=== PATIENT | female | born 1945 | race African-American/Black ===

== ENCOUNTER 2017-10-12 23:45 | Emergency (ER) | payer MEDICARE, MEDICAID ==
[~2017-10-12] VITALS: Ht 167.6 cm; Wt 81.6 kg
[~2017-10-12 23:45] MED LIST: AMLODIPINE BESYL5 MG ORAL; CATAPRES0.1 MG ORAL; CIPROFLOXACIN750 MG ORAL; ELIQUIS5 MG PO; LOVENOX10 MG SUBQ; NEURONTIN300 MG ORAL; NORCO 5-325 TA1 EACH ORAL; NORVASC2.5 MG ORAL; ONDANSETRON ODT4 MG ORAL; TRAMADOL HCL50 MG ORAL; WARFARIN SODIU2.5 MG ORAL; XARELTO10 MG ORAL
[2017-10-13 00:01] VITALS: BP 178/90
--- NOTE | 2017-10-13 00:24 | Emergency Room Report ---
History of Present Illness General Chief Complaint: Pain Source: Patient, Medical Record, EMS Present Illness HPI This is a 71-year-old female with numerous allergies to medication. She has a history of DVT. She says she's mostly on Elida Tonya. She presents with chief complaint of generalized body pain. She was just discharged from [facility] today and sent to a half-way/rehabilitation area. She didn't like it there so she called 911. She complaining of generalized body pain mostly her legs. She said they're swollen. No fever chills but no nausea or vomiting. Pain is 9 out of 10. No trauma. No fever or chills. No shortness of breath. She says she was to take the train back to [place]. Allergies: Coded Allergies: HYDROMORPHONE (Unverified Allergy, Severe, 11/03/13) ACETAMINOPHEN (Unverified Allergy, Mild, 11/03/13) AMOXICILLIN (Unverified Allergy, Mild, 11/03/13) HYDROCODONE (Unverified Allergy, Mild, 11/03/13) PENICILLINS (Unverified Allergy, Mild, 11/03/13) TETRACYCLINES (Unverified Allergy, Mild, 11/03/13) ASPIRIN (Verified Allergy, Unknown, 01/31/15) MORPHINE (Verified Allergy, Unknown, 01/31/15) SULFA (SULFONAMIDE ANTIBIOTICS) (Verified Allergy, Unknown, 01/31/15) Uncoded Allergies: Cipro,Dilaudid, Morphine sulfate (Allergy, Mild, 01/30/15) codein (Allergy, Mild, 11/03/13) gatricin (Allergy, Mild, 11/03/13) gatrinol (Allergy, Mild, 11/03/13) msg (Allergy, Mild, 11/03/13) Patient History Past Medical History: see triage record, old chart reviewed Past Surgical History: other Pertinent Family History: none Social History: Denies: smoking Now: No Immunizations: other Reviewed Nursing Documentation: PMH: Agreed; PSxH: Agreed Nursing Documentation-PMH Hx Hypertension: Yes Hx Cerebrovascular Accident: Yes - TIA Review of Systems Eye: Denies: eye pain, blurred vision ENT: Denies: ear pain, nose congestion, throat swelling Respiratory: Denies: cough, shortness of breath Cardiovascular: Denies: chest pain, palpitations Gastrointestinal: Denies: abdominal pain, diarrhea, nausea, vomiting Musculoskeletal: Denies: back pain, joint pain Skin: Denies: rash Neurological: Denies: headache, numbness Endocrine: Denies: increased thirst, increased urine Hematologic/Lymphatic: Denies: easy bruising All Other Systems: negative except mentioned in HPI Physical Exam Vital Signs Date Time Temp Pulse Resp B/P (MAP) Pulse Ox O2 Delivery O2 Flow Rate FiO2 10/12/17 23:56 98.7 94 16 178/90 99 Room Air 98.8 vitals with high blood pressure Sp02 EP Interpretation: reviewed, normal General Appearance: well appearing, no apparent distress, alert Head: normocephalic, atraumatic Eyes: bilateral eye PERRL, bilateral eye EOMI ENT: hearing grossly normal, normal pharynx Neck: full range of motion, supple, no meningismus Respiratory: chest non-tender, lungs clear, normal breath sounds Cardiovascular #1: regular rate, rhythm, no murmur Gastrointestinal: normal bowel sounds, non tender, no mass, no organomegaly, no bruit, non-distended Musculoskeletal: back normal, normal range of motion, tender - There was no edema to to lower extremities. Diffuse tenderness with palpation. no redness. no d/c. Neurologic: alert, oriented x3 Psychiatric: mood/affect normal Skin: warm/dry Medical Decision Making Diagnostic Impression: Primary Impression: Pain ER Course Patient with chronic pain. She has a packet of discharge paperwork from different hospitals. She refused to let me look at them. I see no need for further workup since she was just at another ER for the same thing. She is currently taking anticoagulation already. We'll discharge home. She said that she can take [facility] also give her a dose here. Last Vital Signs Date Time Temp Pulse Resp B/P (MAP) Pulse Ox O2 Delivery O2 Flow Rate FiO2 10/12/17 23:56 98.7 94 16 178/90 99 Room Air 98.8 Status: improved Disposition: HOME, SELF-CARE Condition: Stable Referrals: NOT CHOSEN IPA/,REFERRING (PCP) Additional Instructions: Follow-up with your doctor in 7 days. Return if symptom worsen. HUMA POWELL M.D. Oct 13, 2017 00:24
[2017-10-13] MEDS ORDERED: Norco 5mg/325mg tab ORAL ONE (00:30)
[2017-10-13 00:45] VITALS: BP 0/0
== END 2017-10-13 00:45 | disposition home or self-care (01) ==
LOC: EDBD 23:45 → EMR 23:59
DX: R52 Pain, unspecified (principal); G89.29 Other chronic pain; I10 Essential (primary) hypertension; Z86.73 Personal history of transient ischemic attack (TIA), and cerebral infarction without residual deficits; Z88.6 Allergy status to analgesic agent; Z88.0 Allergy status to penicillin; Z88.2 Allergy status to sulfonamides; Z88.5 Allergy status to narcotic agent
CPT/HCPCS: 99283

== ENCOUNTER 2017-11-21 21:06 | Inpatient (IN) | payer MEDICARE, MEDICAID ==
[~2017-11-21] VITALS: Ht 167.6 cm; Wt 88.9 kg
[2017-11-21] MEDS ORDERED: ELIQUIS5 MG PO (21:13)
[2017-11-21] MEDS ORDERED: Isovue-370 150ml vial INJ PRN (21:30)
[2017-11-21] MEDS ORDERED: Norco 5mg/325mg tab ORAL ONE (21:30)
[2017-11-21 22:00] VITALS: BP 148/83
--- NOTE | 2017-11-21 22:01 | Emergency Room Report ---
History of Present Illness General Chief Complaint: Chest Pain Source: EMS Present Illness HPI 72-year-old female presents ED complaining of chest pain and leg pain. Brought in by EMS. States that she was diagnosed a few days ago with a DVT in her right leg. She was started on Eliquis. States that she developed chest pain starting today. Midsternal, pressure, 7 out of 10, nonradiating. Notes pain with deep breaths. Denies any history of hypertension or diabetes. Denies smoking or drug use. No other aggravating relieving factors. Denies any other associated symptoms Allergies: Coded Allergies: CODEINE (Verified Allergy, Mild, 11/21/17) HYDROMORPHONE (Verified Allergy, Mild, 11/21/17) MORPHINE (Verified Allergy, Mild, 11/21/17) PENICILLINS (Verified Allergy, Mild, 11/21/17) Patient History Past Medical History: HTN, other - DVT Past Surgical History: none Pertinent Family History: none Social History: Denies: smoking, alcohol use, drug use Now: No Immunizations: UTD Reviewed Nursing Documentation: PMH: Agreed; PSxH: Agreed Nursing Documentation-PMH Past Medical History: No History, Except For Hx Cardiac Problems: Yes Hx Hypertension: Yes Review of Systems All Other Systems: negative except mentioned in HPI Physical Exam Vital Signs Date Time Temp Pulse Resp B/P (MAP) Pulse Ox O2 Delivery O2 Flow Rate FiO2 11/21/17 21:08 98.1 86 16 154/88 100 Room Air 98.1 Sp02 EP Interpretation: reviewed, normal General Appearance: no apparent distress, alert, GCS 15, non-toxic Head: normocephalic, atraumatic Eyes: bilateral eye normal inspection, bilateral eye PERRL ENT: hearing grossly normal, normal pharynx, no angioedema, normal voice Neck: full range of motion, supple/symm/no masses Respiratory: chest non-tender, lungs clear, normal breath sounds, speaking full sentences Cardiovascular #1: regular rate, rhythm, no edema Cardiovascular #2: 2+ carotid (R), 2+ carotid (L), 2+ radial (R), 2+ radial (L) , 2+ dorsalis pedis (R), 2+ dorsalis pedis (L) Gastrointestinal: normal bowel sounds, non tender, soft, non-distended, no guarding, no rebound Rectal: deferred Genitourinary: normal inspection, no CVA tenderness Musculoskeletal: back normal, gait/station normal, normal range of motion, calf tenderness - RLE Neurologic: alert, oriented x3, responsive, motor strength/tone normal, sensory intact, speech normal Psychiatric: judgement/insight normal, memory normal, mood/affect normal, no suicidal/homicidal ideation Reflexes: 3+ bicep (R), 3+ bicep (L), 3+ tricep (R), 3+ tricep (L), 3+ knee (R) , 3+ knee (L) Skin: normal color, no rash, warm/dry, well hydrated Lymphatic: no adenopathy Medical Decision Making Diagnostic Impression: Primary Impression: Chest pain Qualified Codes: R07.9 - Chest pain, unspecified Additional Impression: DVT (deep venous thrombosis) Qualified Codes: I82.90 - Acute embolism and thrombosis of unspecified vein ER Course Hospital Course 72 yo F presents with chest pain. recently diagnosed with DVT Differential diagnoses include: IL/unstable angina, PE, bronchitis, asthma Clinical course Patient placed on stretcher. on classroom monitor. After initial history and physical I ordered labs, EKG, CTA chest labs reviewed- no leukocytosis, hemoglobin/hematocrit stable, electrolytes ok, troponins negative, d-dimer elevated EKG - NSR, no acute ischemic changes interpreted by me. no signs of RV strain Unable to do CTA at this time as patient now documents a contrast allergy. Clinically concerning for PE given recent diagnosis of DVT. We will treat empirically with Lovenox. Patient will require a VQ scan tomorrow Lovenox given. Case discussed with Dr. Bonilla and he agreed to accept the patient to his service for further care and support I. I feel this is a highly complex case requiring extensive working including EKG/Rhythm strip, Xray/CT/US, Blood/urine lab work, repeat exams while in ED, and administration of strong opiates/narcotics for pain control, admission to hospital or close patient follow up. Diagnosis - chest pain, DVT admitted to telemetry in serious condition Labs Test 11/21/17 23:10 White Blood Count 5.7 K/UL (4.8-10.8) Red Blood Count 3.93 M/UL (4.20-5.40) Hemoglobin 10.8 G/DL (12.0-16.0) Hematocrit 33.2 % (37.0-47.0) Mean Corpuscular Volume 84 FL (80-99) Mean Corpuscular Hemoglobin 27.4 PG (27.0-31.0) Mean Corpuscular Hemoglobin Concent 32.5 G/DL (32.0-36.0) Red Cell Distribution Width 14.7 % (11.6-14.8) Platelet Count 205 K/UL (150-450) Mean Platelet Volume 5.2 FL (6.5-10.1) Neutrophils (%) (Auto) 55.5 % (45.0-75.0) Lymphocytes (%) (Auto) 32.9 % (20.0-45.0) Monocytes (%) (Auto) 8.1 % (1.0-10.0) Eosinophils (%) (Auto) 2.0 % (0.0-3.0) Basophils (%) (Auto) 1.5 % (0.0-2.0) Prothrombin Time 11.1 SEC (9.30-11.50) Prothromb Time International Ratio 1.1 (0.9-1.1) Activated Partial Thromboplast Time 21 SEC (23-33) D-Dimer 2.03 mg/L FEU (0.00-0.49) Sodium Level 138 MMOL/L (136-145) Potassium Level 3.4 MMOL/L (3.5-5.1) Chloride Level 106 MMOL/L (98-107) Carbon Dioxide Level 25 MMOL/L (21-32) Anion Gap 7 mmol/L (5-15) Blood Urea Nitrogen 23 mg/dL (7-18) Creatinine 0.8 MG/DL (0.55-1.30) Estimat Glomerular Filtration Rate mL/min (>60) Glucose Level 93 MG/DL (74-106) Calcium Level 9.2 MG/DL (8.5-10.1) Total Bilirubin 0.3 MG/DL (0.2-1.0) Aspartate Amino Transf (AST/SGOT) 12 U/L (15-37) Alanine Aminotransferase (ALT/SGPT) 15 U/L (12-78) Alkaline Phosphatase 99 U/L (46-116) Total Creatine Kinase 72 U/L (26-308) Creatine Kinase MB 0.6 NG/ML (0.0-3.6) Creatine Kinase MB Relative Index 0.8 Troponin I 0.002 ng/mL (0.000-0.056) Pro-B-Type Natriuretic Peptide 230 pg/mL (0-125) Total Protein 7.1 G/DL (6.4-8.2) Albumin 3.0 G/DL (3.4-5.0) Globulin 4.1 g/dL Albumin/Globulin Ratio 0.7 (1.0-2.7) EKG Diagnostic Results Rate: normal Rhythm: NSR ST Segments: no acute changes Rhythm Strip Diag. Results EP Interpretation: yes Rhythm: NSR, no PVC's, no ectopy Last Vital Signs Date Time Temp Pulse Resp B/P (MAP) Pulse Ox O2 Delivery O2 Flow Rate FiO2 11/21/17 21:08 98.1 86 16 154/88 100 Room Air 98.1 Status: improved Disposition: ADMITTED INPATIENT Condition: Serious Rafal Phan MD Nov 21, 2017 22:01
[2017-11-21 23:00] VITALS: BP 140/88
[2017-11-21 23:30] LABS: BASOPHILS % (AUTO) 1.5 % (0.0-2.0); HEMATOCRIT 33.2 % (37.0-47.0); HEMOGLOBIN 10.8 G/DL (12.0-16.0); LYMPHOCYTES % (AUTO) 32.9 % (20.0-45.0); MEAN CORPUSCULAR VOLUME 84 FL (80-99); MONOCYTES % (AUTO) 8.1 % (1.0-10.0); NEUTROPHILS % (AUTO) 55.5 % (45.0-75.0); PLATELET COUNT 205 K/UL (150-450); RED BLOOD COUNT 3.93 M/UL (4.20-5.40); RED CELL DISTRIBUTION WIDTH 14.7 % (11.6-14.8); WHITE BLOOD COUNT 5.7 K/UL (4.8-10.8)
[2017-11-21 23:42] LABS: ANION GAP 7 mmol/L (5-15); BLOOD UREA NITROGEN 23 mg/dL (7-18); CALCIUM 9.2 MG/DL (8.5-10.1); CARBON DIOXIDE 25 MMOL/L (21-32); CHLORIDE 106 MMOL/L (98-107); CREATININE 0.8 MG/DL (0.55-1.30); POTASSIUM 3.4 MMOL/L (3.5-5.1); SODIUM 138 MMOL/L (136-145)
[2017-11-21 23:49] LABS: INR 1.1 (0.9-1.1)
[2017-11-21 23:57] LABS: ALANINE AMINOTRANSFERASE 15 U/L (12-78); ALBUMIN/GLOBULIN RATIO 0.7 (1.0-2.7); ALKALINE PHOSPHATASE 99 U/L (46-116); ASPARTATE AMINO TRANSFERASE 12 U/L (15-37); BILIRUBIN,TOTAL 0.3 MG/DL (0.2-1.0); CKMB 0.6 NG/ML (0.0-3.6); CREATINE KINASE 72 U/L (26-308)
[2017-11-22] VITALS (7 sets, daily range): BP systolic 112–149; BP diastolic 58–100
[2017-11-22] MEDS ORDERED: Enoxaparin 100mg Inj SUBQ ONE (00:45)
[2017-11-22] MEDS ORDERED: HYDROCHLOROTHIA25 MG ORAL (03:01)
[2017-11-22] MEDS ORDERED: NORCO 5-325 TA1 EACH ORAL (03:01)
[2017-11-22] MEDS: Docusate 100mg cap ORAL SCH ×2 (08:55→21:30)
--- NOTE | 2017-11-22 09:18 | Diagnostic Imaging Report ---
Indication: Chest pain Technique: One view of the chest Comparison: none Findings: Lungs and pleural spaces are clear. Heart size is normal Impression: No acute process
[2017-11-22] MEDS: Eliquis 2.5mg tablet ORAL SCH ×2 (10:21→21:29)
--- NOTE | 2017-11-22 13:05 | Cardiac Electrophysiology PN ---
Subjective Subjective [id number] Objective Last 24 Hour Vital Signs Date Time Temp Pulse Resp B/P (MAP) Pulse Ox O2 Delivery O2 Flow Rate FiO2 11/22/17 09:00 Room Air 11/22/17 08:00 97.7 78 20 130/63 (85) 99 97.7 11/22/17 08:00 77 11/22/17 04:00 79 11/22/17 03:34 Room Air 11/22/17 03:00 97.0 84 20 112/58 (76) 94 97.0 11/22/17 02:30 91 11/22/17 02:10 97.9 78 16 118/65 100 Room Air 97.9 11/22/17 01:00 97.9 78 16 118/65 100 Room Air 97.9 11/22/17 00:22 97.9 11/22/17 00:00 97.9 71 16 147/85 100 Room Air 97.9 11/21/17 23:23 98.1 11/21/17 23:00 97.9 74 15 140/88 99 Room Air 97.9 11/21/17 22:00 98.1 78 16 148/83 100 Room Air 98.1 11/21/17 21:45 80 16 Room Air 11/21/17 21:08 98.1 86 16 154/88 100 Room Air 98.1 Intake and Output 11/21/17 11/22/17 19:00 07:00 Intake Total 390 ml Output Total 300 ml Balance 90 ml Intake Oral 240 ml IV Total 150 ml Output Urine Total 300 ml # Voids 1 Laboratory Tests Test 11/21/17 23:10 11/22/17 08:05 White Blood Count 5.7 K/UL (4.8-10.8) Red Blood Count 3.93 M/UL (4.20-5.40) L Hemoglobin 10.8 G/DL (12.0-16.0) L Hematocrit 33.2 % (37.0-47.0) L Mean Corpuscular Volume 84 FL (80-99) Mean Corpuscular Hemoglobin 27.4 PG (27.0-31.0) Mean Corpuscular Hemoglobin Concent 32.5 G/DL (32.0-36.0) Red Cell Distribution Width 14.7 % (11.6-14.8) Platelet Count 205 K/UL (150-450) Mean Platelet Volume 5.2 FL (6.5-10.1) L Neutrophils (%) (Auto) 55.5 % (45.0-75.0) Lymphocytes (%) (Auto) 32.9 % (20.0-45.0) Monocytes (%) (Auto) 8.1 % (1.0-10.0) Eosinophils (%) (Auto) 2.0 % (0.0-3.0) Basophils (%) (Auto) 1.5 % (0.0-2.0) Prothrombin Time 11.1 SEC (9.30-11.50) Prothromb Time International Ratio 1.1 (0.9-1.1) Activated Partial Thromboplast Time 21 SEC (23-33) L D-Dimer 2.03 mg/L FEU (0.00-0.49) H Sodium Level 138 MMOL/L (136-145) Potassium Level 3.4 MMOL/L (3.5-5.1) L Chloride Level 106 MMOL/L (98-107) Carbon Dioxide Level 25 MMOL/L (21-32) Anion Gap 7 mmol/L (5-15) Blood Urea Nitrogen 23 mg/dL (7-18) H Creatinine 0.8 MG/DL (0.55-1.30) Estimat Glomerular Filtration Rate mL/min (>60) Glucose Level 93 MG/DL (74-106) Calcium Level 9.2 MG/DL (8.5-10.1) Total Bilirubin 0.3 MG/DL (0.2-1.0) Aspartate Amino Transf (AST/SGOT) 12 U/L (15-37) L Alanine Aminotransferase (ALT/SGPT) 15 U/L (12-78) Alkaline Phosphatase 99 U/L (46-116) Total Creatine Kinase 72 U/L (26-308) Creatine Kinase MB 0.6 NG/ML (0.0-3.6) Creatine Kinase MB Relative Index 0.8 Troponin I 0.002 ng/mL (0.000-0.056) 0.000 ng/mL (0.000-0.056) Pro-B-Type Natriuretic Peptide 230 pg/mL (0-125) H Total Protein 7.1 G/DL (6.4-8.2) Albumin 3.0 G/DL (3.4-5.0) L Globulin 4.1 g/dL Albumin/Globulin Ratio 0.7 (1.0-2.7) L Noe Crook MD Nov 22, 2017 13:05
[2017-11-22 14:39] LABS: FERRITIN 18 NG/ML (8-388)
[2017-11-22 14:42] LABS: % IRON SATURATION 10 % (15-50); IRON 29 ug/dL (50-175); TOTAL IRON BINDING CAPACITY 285 ug/dL (250-450)
--- NOTE | 2017-11-22 15:14 | Diagnostic Imaging Report ---
Indications: Chest pain, shortness of breath, history of deep venous thrombosis Technique: IV administration 5.5 mCi 99m technetium macroaggregated albumin. Images obtained over the lungs in multiple projections. Previously, patient inhaled 40 mCi aerosolized 99M technetium DTPA. Images obtained over the lungs in multiple projections Comparison: Reference made to chest radiograph dated 11/21/2017 Findings: There is slight heterogeneity to the pulmonary perfusion, but no definite fixed or reversible perfusion defects or evidence of perfusion/aerosol mismatch. Impression: Findings are low probability for pulmonary embolus
--- NOTE | 2017-11-22 17:00 | Consultation ---
DATE OF CONSULTATION: 11/22/2017 CARDIAC ELECTROPHYSIOLOGY CONSULTATION CONSULTING PHYSICIAN: Noe Crook M.D. REFERRING PHYSICIAN: Kvng Dwyer M.D. REASON FOR CONSULTATION: Chest pain and leg pain. HISTORY OF PRESENT ILLNESS: The patient is a very pleasant 72-year-old lady with history of hypertension and history of deep vein thrombosis, brought to the emergency room for right leg pain. The patient was started on Eliquis as an outpatient for DVT, chest pain that was midsternal, but pain was without any radiation. The patient was admitted and a Cardiology consultation was obtained for further evaluation and management. PAST MEDICAL HISTORY: Includes hypertension and DVT. FAMILY HISTORY: Noncontributory. SOCIAL HISTORY: She denies smoking or drinking alcohol. REVIEW OF SYSTEMS: Performed and was negative other than what was mentioned in the history of present illness. PHYSICAL EXAMINATION: VITAL SIGNS: Blood pressure is 130/63, pulse 78, respirations 18, and she is afebrile. HEAD AND NECK: Shows no JVD or carotid bruit. LUNGS: Clear. CARDIOVASCULAR: Shows regular S1 and S2 with no gallop or murmur. ABDOMEN: Soft. EXTREMITIES: Show 1+ pitting edema. LABORATORY AND DIAGNOSTIC DATA: Labs show white count of 5.7, hematocrit 10.8, hematocrit 33.5, and platelet count of 205,000. Sodium 138, potassium 3.4, BUN of 22, creatinine 0.8, and glucose of 93. Troponin negative x2. INR is 1. D-dimer is 2.0. ASSESSMENT AND PLAN: 1. Deep venous thrombosis. The patient is on Eliquis 5 mg b.i.d. Ventilation/perfusion scan is pending for further evaluation to rule out pulmonary embolism. 2. Chest pain, atypical. The patient was ruled out for myocardial infarction. EKG was read as acute ischemic changes. We will get an echocardiogram to rule out for ejection fraction and wall motion abnormality. 3. Hypertension, on hydrochlorothiazide. I will add p.r.n. clonidine to her medical regimen. Thank you very much for allowing me to participate in the care of this patient. Please do not hesitate to contact me for any questions regarding my evaluation. Noe Crook M.D. DR: LÁZARO JOB#: [id number] CC:
--- NOTE | 2017-11-22 23:15 | Consultation ---
DATE OF CONSULTATION: 11/22/2017 PULMONARY CONSULTATION CONSULTING PHYSICIAN: Edi Veras M.D. REFERRING PHYSICIAN: Allen Bonilla M.D. REASON FOR ADMISSION: Pulmonary embolism. HISTORY OF PRESENT ILLNESS: This is a 72-year-old female presents with chest pain, likely the patient has been diagnosed a few days ago with DVT, started on Eliquis. The patient noticed worsening pain, apparently with some pain in the chest and shortness of breath. No history of hypertension or diabetes. The patient also complains of some nausea. At this time, the patient was admitted. Medications resumed and was called to assist and evaluate further. The patient has a known history of pulmonary embolism as described. She has multiple allergies currently, she is otherwise comfortable. No hemoptysis and no radiation of pain. PAST MEDICAL HISTORY: DVT, hypertension, and PE. MEDICATIONS: Reviewed. PAST SURGICAL HISTORY: Essentially negative. FAMILY HISTORY: Essentially negative and noncontributory to the above. REVIEW OF SYSTEMS: All 10 points reviewed and otherwise negative with the exception of the above. PHYSICAL EXAMINATION: GENERAL: A well-developed female, comfortable at present. VITAL SIGNS: Blood pressure 128/63, pulse 78, respiratory rate 20, and temperature 97.7. HEENT: Negative. Extraocular movements are grossly intact. NECK: Supple. LUNGS: Fairly clear and symmetric. CARDIAC: Normal S1, S2. Regular rate and rhythm without murmurs, rubs, or gallops. ABDOMEN: Soft, nontender, and nondistended. EXTREMITIES: No cyanosis or clubbing. There is trace edema. NEUROLOGIC: Diffusely nonfocal overall. LABORATORY DATA: Otherwise reviewed. X-ray essentially negative of the chest. IMPRESSION: 1. DVT. 2. Possible history of pulmonary embolism. 3. Chest pain. 4. Possible pleurisy. 5. Evidence of nausea. RECOMMENDATION: Resume home medications. The patient is currently on Lovenox one dose given. We will resume Xarelto and/or Eliquis. VQ scan has been ordered and maintain anticoagulation and to assess for further changes and intervention and re-evaluate pending further imaging results. Eid Veras M.D. DR: KAYLEE JOB#: [id number] CC:
[2017-11-23 04:00] VITALS: BP 132/71
[2017-11-23 07:20] LABS: BASOPHILS % (AUTO) 0.9 % (0.0-2.0); EOSINOPHILS % (AUTO) 2.6 % (0.0-3.0); HEMATOCRIT 33.2 % (37.0-47.0); HEMOGLOBIN 10.5 G/DL (12.0-16.0); LYMPHOCYTES % (AUTO) 34.5 % (20.0-45.0); MEAN CORPUSCULAR VOLUME 85 FL (80-99); PLATELET COUNT 248 K/UL (150-450); RED BLOOD COUNT 3.91 M/UL (4.20-5.40); RED CELL DISTRIBUTION WIDTH 14.7 % (11.6-14.8); WHITE BLOOD COUNT 5.2 K/UL (4.8-10.8)
[2017-11-23 07:37] LABS: ANION GAP 9 mmol/L (5-15); BLOOD UREA NITROGEN 19 mg/dL (7-18); CALCIUM 9.3 MG/DL (8.5-10.1); CARBON DIOXIDE 26 MMOL/L (21-32); CHLORIDE 109 MMOL/L (98-107); CREATININE 0.8 MG/DL (0.55-1.30); POTASSIUM 3.8 MMOL/L (3.5-5.1); SODIUM 144 MMOL/L (136-145)
[2017-11-23 08:00] VITALS: BP 146/86
--- NOTE | 2017-11-23 08:01 | Pulmonology Progress Note ---
Assessment/Plan Assessment/Plan IMPRESSION: 1. DVT. 2. History of pulmonary embolism. 3. Chest pain. 4. Possible pleurisy. 5. Evidence of nausea. PLAN eliquis monitor as is VQ low prob cards noted care reviewed monitor for bleeding unclear as to whether PE was provoked or unprovoked impression, plan, and exam edited and reviewed in detail care discussed with RN Subjective Allergies: Coded Allergies: HYDROMORPHONE (Unverified Allergy, Severe, 11/03/13) DIPHENHYDRAMINE (Verified Allergy, Intermediate, Itching, 11/22/17) ACETAMINOPHEN (Unverified Allergy, Mild, 11/03/13) AMOXICILLIN (Unverified Allergy, Mild, 11/03/13) CODEINE (Verified Allergy, Mild, 11/22/17) HYDROCODONE (Unverified Allergy, Mild, 11/03/13) PENICILLINS (Unverified Allergy, Mild, 11/03/13) TETRACYCLINES (Unverified Allergy, Mild, 11/03/13) ASPIRIN (Verified Allergy, Unknown, 01/31/15) MORPHINE (Verified Allergy, Unknown, 01/31/15) SULFA (SULFONAMIDE ANTIBIOTICS) (Verified Allergy, Unknown, 01/31/15) Uncoded Allergies: IV CONTRAST (Allergy, Intermediate, Itching, 11/22/17) MSG (Allergy, Intermediate, Itching, 11/22/17) Cipro,Dilaudid, Morphine sulfate (Allergy, Mild, 01/30/15) codein (Allergy, Mild, 11/03/13) gatricin (Allergy, Mild, 11/03/13) gatrinol (Allergy, Mild, 11/03/13) msg (Allergy, Mild, 11/03/13) Subjective no cp or sob vq reviewed Objective Last 24 Hour Vital Signs Date Time Temp Pulse Resp B/P (MAP) Pulse Ox O2 Delivery O2 Flow Rate FiO2 11/23/17 04:00 98.0 64 20 132/71 (91) 99 98.0 11/23/17 03:38 74 11/22/17 23:57 79 11/22/17 21:00 Room Air 11/22/17 20:00 98.2 93 19 141/73 (95) 97 98.2 11/22/17 19:23 93 11/22/17 16:00 80 11/22/17 16:00 98.4 96 16 149/100 (116) 96 98.4 11/22/17 12:00 97.3 72 22 134/74 (94) 98 97.3 11/22/17 12:00 76 11/22/17 09:00 Room Air Intake and Output 11/22/17 11/23/17 19:00 07:00 Intake Total 650 ml 240 ml Output Total 600 ml Balance 650 ml -360 ml Intake Oral 650 ml 240 ml Output Urine Total 600 ml # Voids 4 3 Objective GENERAL: A well-developed female, comfortable at present. NAD HEENT: Negative. clear oropharynx NECK: Supple. LUNGS: Fairly clear and symmetric. without rhonchi or wheeze CARDIAC: Normal S1, S2. Regular rate and rhythm without murmurs, rubs, or gallops. ABDOMEN: Soft, nontender, and nondistended. no HSM EXTREMITIES: No cyanosis or clubbing. There is trace edema. NEUROLOGIC: Diffusely nonfocal overall. Laboratory Tests 11/22/17 08:05: Troponin I 0.000 11/22/17 13:50: Fibrinogen 359, D-Dimer 1.35H, Iron Level 29L, Total Iron Binding Capacity 285, Percent Iron Saturation 10L, Unsaturated Iron Binding 256, Ferritin 18, Carcinoembryonic Antigen [Pending], Methylmalonic Acid [Pending], Folate 10.1, Homocystine [Pending], Thyroid Stimulating Hormone (TSH) 0.211L 11/23/17 06:30: Troponin I [Pending], White Blood Count 5.2, Red Blood Count 3.91L, Hemoglobin 10.5L, Hematocrit 33.2L, Mean Corpuscular Volume 85, Mean Corpuscular Hemoglobin 26.9L, Mean Corpuscular Hemoglobin Concent 31.6L, Red Cell Distribution Width 14.7, Platelet Count 248, Mean Platelet Volume 5.4L, Neutrophils (%) (Auto) 52.0, Lymphocytes (%) (Auto) 34.5, Monocytes (%) (Auto) 10.0, Eosinophils (%) (Auto) 2.6, Basophils (%) (Auto) 0.9, Sodium Level 144, Potassium Level 3.8, Chloride Level 109H, Carbon Dioxide Level 26, Anion Gap 9, Blood Urea Nitrogen 19H, Creatinine 0.8, Estimat Glomerular Filtration Rate , Glucose Level 90, Calcium Level 9.3, Pro-B-Type Natriuretic Peptide [Pending] Current Medications Medications (Trade) Dose Ordered Sig/Antonio Route PRN Reason Start Time Stop Time Status Last Admin Dose Admin Acetaminophen (Tylenol) 650 mg Q4H PRN ORAL Mild Pain (Pain Scale 1-3) 11/22/17 00:45 12/22/17 00:44 11/22/17 21:36 Apixaban (Eliquis) 5 mg Q12H ORAL 11/22/17 10:00 12/22/17 09:59 11/22/17 21:29 Dextrose (Dextrose 50%) 25 ml STAT PRN IV Hypoglycemia 11/22/17 00:45 12/22/17 00:44 Dextrose (Dextrose 50%) 50 ml STAT PRN IV Hypoglycemia 11/22/17 00:45 12/22/17 00:44 Diphenhydramine HCl (Benadryl) 25 mg Q6H PRN ORAL Itching/Pruritis 11/22/17 00:45 12/22/17 00:44 Docusate Sodium (Colace) 100 mg EVERY 12 HOURS ORAL 11/22/17 09:00 12/22/17 08:59 11/22/17 21:30 Famotidine (Pepcid) 40 mg DAILY ORAL 11/22/17 09:00 12/22/17 08:59 11/22/17 08:54 Hydrochlorothiazide (Hydrodiuril) 25 mg DAILY ORAL 11/22/17 09:00 12/22/17 08:59 11/22/17 08:54 Iopamidol (Isovue-370 150ml) 150 ml NOW PRN INJ Radiology Procedure 11/21/17 21:30 11/23/17 21:24 Ondansetron HCl (Zofran) 4 mg Q6H PRN IVP Nausea & Vomiting 11/22/17 08:31 12/22/17 08:30 11/22/17 08:55 Sodium Chloride 1,000 ml @ 50 mls/hr Q20H IVLG 11/22/17 01:39 12/22/17 01:38 11/22/17 21:29 Edi Veras MD Nov 23, 2017 08:01
--- NOTE | 2017-11-23 08:08 | Nephrology Progress Note ---
Assessment/Plan Assessment/Plan 1. DVT- Back on Eliquis after stopping it prior to return of DVT 2. Chest Pain- per cardiology VQ scan low probability Await DC clearance from cardiology 3. Disposition- plan on DC aminata to SNF 4. HTN- stable on HCT Subjective Date patient seen: Nov 23, 2017 Time patient seen: 08:03 ROS Limited/Unobtainable: No Allergies: Coded Allergies: HYDROMORPHONE (Unverified Allergy, Severe, 11/03/13) DIPHENHYDRAMINE (Verified Allergy, Intermediate, Itching, 11/22/17) ACETAMINOPHEN (Unverified Allergy, Mild, 11/03/13) AMOXICILLIN (Unverified Allergy, Mild, 11/03/13) CODEINE (Verified Allergy, Mild, 11/22/17) HYDROCODONE (Unverified Allergy, Mild, 11/03/13) PENICILLINS (Unverified Allergy, Mild, 11/03/13) TETRACYCLINES (Unverified Allergy, Mild, 11/03/13) ASPIRIN (Verified Allergy, Unknown, 01/31/15) MORPHINE (Verified Allergy, Unknown, 01/31/15) SULFA (SULFONAMIDE ANTIBIOTICS) (Verified Allergy, Unknown, 01/31/15) Uncoded Allergies: IV CONTRAST (Allergy, Intermediate, Itching, 11/22/17) MSG (Allergy, Intermediate, Itching, 11/22/17) Cipro,Dilaudid, Morphine sulfate (Allergy, Mild, 01/30/15) codein (Allergy, Mild, 11/03/13) gatricin (Allergy, Mild, 11/03/13) gatrinol (Allergy, Mild, 11/03/13) msg (Allergy, Mild, 11/03/13) All Systems: reviewed and negative except above Subjective Patient feeling better. RLE still little tender Objective Last 24 Hour Vital Signs Date Time Temp Pulse Resp B/P (MAP) Pulse Ox O2 Delivery O2 Flow Rate FiO2 11/23/17 04:00 98.0 64 20 132/71 (91) 99 98.0 11/23/17 03:38 74 11/22/17 23:57 79 11/22/17 21:00 Room Air 11/22/17 20:00 98.2 93 19 141/73 (95) 97 98.2 11/22/17 19:23 93 11/22/17 16:00 80 11/22/17 16:00 98.4 96 16 149/100 (116) 96 98.4 11/22/17 12:00 97.3 72 22 134/74 (94) 98 97.3 11/22/17 12:00 76 11/22/17 09:00 Room Air Intake and Output 11/22/17 11/23/17 19:00 07:00 Intake Total 650 ml 240 ml Output Total 600 ml Balance 650 ml -360 ml Intake Oral 650 ml 240 ml Output Urine Total 600 ml # Voids 4 3 Laboratory Tests 11/22/17 08:05: Troponin I 0.000 11/22/17 13:50: Fibrinogen 359, D-Dimer 1.35H, Iron Level 29L, Total Iron Binding Capacity 285, Percent Iron Saturation 10L, Unsaturated Iron Binding 256, Ferritin 18, Carcinoembryonic Antigen [Pending], Methylmalonic Acid [Pending], Folate 10.1, Homocystine [Pending], Thyroid Stimulating Hormone (TSH) 0.211L 11/23/17 06:30: Troponin I [Pending], White Blood Count 5.2, Red Blood Count 3.91L, Hemoglobin 10.5L, Hematocrit 33.2L, Mean Corpuscular Volume 85, Mean Corpuscular Hemoglobin 26.9L, Mean Corpuscular Hemoglobin Concent 31.6L, Red Cell Distribution Width 14.7, Platelet Count 248, Mean Platelet Volume 5.4L, Neutrophils (%) (Auto) 52.0, Lymphocytes (%) (Auto) 34.5, Monocytes (%) (Auto) 10.0, Eosinophils (%) (Auto) 2.6, Basophils (%) (Auto) 0.9, Sodium Level 144, Potassium Level 3.8, Chloride Level 109H, Carbon Dioxide Level 26, Anion Gap 9, Blood Urea Nitrogen 19H, Creatinine 0.8, Estimat Glomerular Filtration Rate , Glucose Level 90, Calcium Level 9.3, Pro-B-Type Natriuretic Peptide [Pending] Height (Feet): 5 Height (Inches): 6.00 Weight (Pounds): 223 General Appearance: WD/WN, no apparent distress EENT: PERRL/EOMI Neck: non-tender, normal alignment Cardiovascular: normal rate, regular rhythm Respiratory/Chest: lungs clear, normal breath sounds Abdomen: normal bowel sounds, soft Edema: 1+ Leg (R) Allen Bonilla M.D. Nov 23, 2017 08:08
--- NOTE | 2017-11-23 08:15 | History and Physical Report ---
DATE OF ADMISSION: 11/22/2017 REASON FOR ADMISSION: 1. Chest pain. 2. Right lower extremity DVT. HISTORY OF PRESENT ILLNESS: The patient is a 72-year-old female who presented to emergency room yesterday evening for evaluation of chest pain along with right lower extremity pain and swelling. The patient states that several days prior, she was diagnosed with a recurrence of DVT in the right lower extremity at the [facility]. She had been diagnosed with DVT approximately 5 months ago and had been on Eliquis. During that time, the patient also had pulmonary embolism. The patient states that in the interval, she did run out of her medications prior to her right lower leg getting diagnosed once again with DVT several days ago. During that time, she had not been on anticoagulation when her lower extremity DVT recurred. She states she still has a little chest pressure and pain. Troponins currently have been negative. She received 100 mg dose of Lovenox in the emergency room. ALLERGIES: Codeine, hydromorphone, morphine, penicillins, IV dye. PAST MEDICAL HISTORY: 1. Pulmonary embolism. 2. Hypertension. 3. DVT. PAST SURGICAL HISTORY: None. SOCIAL HISTORY: No tobacco, alcohol, or illicit drug use. REVIEW OF SYSTEMS: NEUROLOGIC: The patient denies headache, change in vision, syncope, or presyncopal episodes. CARDIOVASCULAR: Some chest pressure and tightness. No palpitations. PULMONARY: No shortness of breath or productive cough. GASTROINTESTINAL/GENITOURINARY: No changes in urinary or bowel habits. No nausea, vomiting, or diarrhea. She did have some spotting when she re-initiated Eliquis. MUSCULOSKELETAL: The patient is feeling tired, weak, and fatigued. LABORATORIES: Dated November 21, 2017, white cell count 5.7, hemoglobin 10.8, and platelet count 205,000. Sodium 138, potassium 3.4, creatinine 0.8. AST and ALT 12 and 15 respectively. Troponin 0.02. PHYSICAL EXAMINATION: VITAL SIGNS: Blood pressure 112/58, respiratory rate 20, pulse 84, temperature 97.0, saturation 94% on room air. GENERAL: The patient is awake, alert, not otherwise in distress. HEENT: Extraocular muscles intact. No lymphadenopathy noted. CARDIOVASCULAR: S1, S2. No rubs or gallops. PULMONARY: Clear to auscultation bilaterally. No rales, rhonchi, or wheezes. ABDOMEN: Nondistended, nontender. EXTREMITIES: A 1+ pitting edema in bilateral lower extremities. ASSESSMENT AND PLAN: 1. Right lower extremity DVT. Recurrent in nature. Her right lower extremity DVT recurred during the interval in which she was not taking her Eliquis. At this time, the patient has been given a dose of 100 mg dose of Lovenox until Hematology/Oncology can evaluate the patient. 2. Chest pain. Cardiology has been consulted. Currently, troponins are negative. Concern is for possible pulmonary embolism. Ventilation/perfusion scan has been ordered as the patient is allergic to IV dye. Pulmonary has been consulted for further evaluation and management. 3. Hypertension. Stable. Adjust medications as deemed appropriate. 4. Hypokalemia. Continue p.o. potassium supplementation as needed. 5. DVT prophylaxis. The patient is fully anticoagulated and has a right lower extremity DVT. Allen Bonilla MD DR: Joshua JOB#: [id number] CC:
[2017-11-23] MEDS: Docusate 100mg cap ORAL SCH ×2 (08:39→20:28)
--- NOTE | 2017-11-23 08:51 | Consultation ---
Consult Note Consult Note Hematology Oncology Consult Note RFC: eval dvt and pe REQ : Allen COMBS 11/23/17 REASON FOR ADMISSION: 1. Chest pain. 2. Right lower extremity DVT. HISTORY OF PRESENT ILLNESS: 72-year-old female who presented to emergency room yesterday evening for evaluation of chest pain along with right lower extremity pain and swelling. The patient states that several days prior, she was diagnosed with a recurrence of DVT in the right lower extremity at the [facility]. She had been diagnosed with DVT approximately 5 months ago and had been on Eliquis. During that time, the patient also had pulmonary embolism. The patient states that in the interval, she did run out of her medications prior to her right lower leg getting diagnosed once again with DVT several days ago. During that time, she had not been on anticoagulation when her lower extremity DVT recurred. She states she still has a little chest pressure and pain. Troponins currently have been negative. She received 100 mg dose of Lovenox in the emergency room. ALLERGIES: Codeine, hydromorphone, morphine, penicillins, IV dye. PAST MEDICAL HISTORY: 1. Pulmonary embolism. 2. Hypertension. 3. DVT. PAST SURGICAL HISTORY: None. SOCIAL HISTORY: No tobacco, alcohol, or illicit drug use. REVIEW OF SYSTEMS: GEN: no constitutional symptoms, fevers, night sweats NEUROLOGIC: The patient denies headache, change in vision, syncope, or presyncopal episodes. CARDIOVASCULAR: Some chest pressure and tightness. No palpitations. PULMONARY: No shortness of breath or productive cough. GASTROINTESTINAL/GENITOURINARY: No changes in urinary or bowel habits. No nausea, vomiting, or diarrhea. She did. MUSCULOSKELETAL: The patient is feeling tired, weak, and fatigu Laboratory Tests Test 11/22/17 13:50 11/23/17 06:30 Fibrinogen 359 mg/dL (200-400) D-Dimer 1.35 mg/L FEU (0.00-0.49) H Iron Level 29 ug/dL (50-175) L Total Iron Binding Capacity 285 ug/dL (250-450) Percent Iron Saturation 10 % (15-50) L Unsaturated Iron Binding 256 ug/dL (112-346) Ferritin 18 NG/ML (8-388) Carcinoembryonic Antigen Pending Methylmalonic Acid Pending Folate 10.1 NG/ML (8.6-58.9) Homocystine 13.8 umol/L (0.0-15.0) Thyroid Stimulating Hormone (TSH) 0.211 uiU/mL (0.358-3.740) White Blood Count 5.2 K/UL (4.8-10.8) Red Blood Count 3.91 M/UL (4.20-5.40) L Hemoglobin 10.5 G/DL (12.0-16.0) L Hematocrit 33.2 % (37.0-47.0) L Mean Corpuscular Volume 85 FL (80-99) Mean Corpuscular Hemoglobin 26.9 PG (27.0-31.0) L Mean Corpuscular Hemoglobin Concent 31.6 G/DL (32.0-36.0) L Red Cell Distribution Width 14.7 % (11.6-14.8) Platelet Count 248 K/UL (150-450) Mean Platelet Volume 5.4 FL (6.5-10.1) L Neutrophils (%) (Auto) 52.0 % (45.0-75.0) Lymphocytes (%) (Auto) 34.5 % (20.0-45.0) Monocytes (%) (Auto) 10.0 % (1.0-10.0) Eosinophils (%) (Auto) 2.6 % (0.0-3.0) Basophils (%) (Auto) 0.9 % (0.0-2.0) Sodium Level 144 MMOL/L (136-145) Potassium Level 3.8 MMOL/L (3.5-5.1) Chloride Level 109 MMOL/L (98-107) H Carbon Dioxide Level 26 MMOL/L (21-32) Anion Gap 9 mmol/L (5-15) Blood Urea Nitrogen 19 mg/dL (7-18) H Creatinine 0.8 MG/DL (0.55-1.30) Estimat Glomerular Filtration Rate mL/min (>60) Glucose Level 90 MG/DL (74-106) Calcium Level 9.3 MG/DL (8.5-10.1) Troponin I 0.000 ng/mL (0.000-0.056) Pro-B-Type Natriuretic Peptide Pending PHYSICAL EXAMINATION: VITAL SIGNS: reviewed GENERAL: The patient is awake, alert, not otherwise in distress. HEENT: Extraocular muscles intact. No lymphadenopathy noted. CARDIOVASCULAR: S1, S2. No rubs or gallops. PULMONARY: Clear to auscultation bilaterally. No rales, rhonchi, or wheezes. ABDOMEN: Nondistended, nontender. EXTREMITIES: A 1+ pitting edema in bilateral lower extremities. ASSESSMENT AND PLAN: #. 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 Initially she suffered her first DVT 2 years ago after a ankle fracture thus it was provoked especially after a long period of immobility. It became recurrent. It then occured on her left leg, so she has a hx of left leg dvt as well. Also has a history of PE, not massive in nature and not affected her heart. Her right lower extremity DVT recurred during the interval in which she was not taking her Eliquis. At this time, the patient has been given a dose of 100 mg dose of Lovenox --> recommend to restart eliquis at the 10mg po bid dose x 7 days and then 5mg po bid FOR LIFE as recurrent thromboembolic events --> do not recommend ivc filter --> do not recommend thrombophilia panel given provoked nature of dvt/pe initially #. Anemia of chronic disease - mild at this time --> workup if hgb drops less than 10 #. Chest pain. Cardiology has been consulted. Currently, troponins are negative. --> appreciate Dr. Crook and Rito ramon #. Hypertension. Stable. Adjust medications as deemed appropriate. #. Hypokalemia. Continue p.o. potassium supplementation as needed. Masood Solis MD Nov 23, 2017 08:51
[2017-11-23] MEDS ORDERED: Eliquis 2.5mg tablet ORAL SCH (10:00)
--- NOTE | 2017-11-23 10:38 | Cardiac Electrophysiology PN ---
Assessment/Plan Assessment/Plan 1. Deep venous thrombosis. On Eliquis 5 mg b.i.d. Ventilation/perfusion scan is negative for pulmonary embolism. Offered stress test but she refused 2. Chest pain, atypical. The patient was ruled out for myocardial infarction. EKG was read as acute ischemic changes. Echocardiogram showed Nl EF 65% 3. Hypertension, on hydrochlorothiazide and p.r.n. clonidine Subjective Subjective No CP or SOB. Objective Last 24 Hour Vital Signs Date Time Temp Pulse Resp B/P (MAP) Pulse Ox O2 Delivery O2 Flow Rate FiO2 11/23/17 08:00 97.2 89 26 146/86 (106) 99 97.2 11/23/17 04:00 98.0 64 20 132/71 (91) 99 98.0 11/23/17 03:38 74 11/22/17 23:57 79 11/22/17 21:00 Room Air 11/22/17 20:00 98.2 93 19 141/73 (95) 97 98.2 11/22/17 19:23 93 11/22/17 16:00 80 11/22/17 16:00 98.4 96 16 149/100 (116) 96 98.4 11/22/17 12:00 97.3 72 22 134/74 (94) 98 97.3 11/22/17 12:00 76 Intake and Output 11/22/17 11/23/17 19:00 07:00 Intake Total 650 ml 240 ml Output Total 600 ml Balance 650 ml -360 ml Intake Oral 650 ml 240 ml Output Urine Total 600 ml # Voids 4 3 Laboratory Tests Test 11/22/17 13:50 11/23/17 06:30 Fibrinogen 359 mg/dL (200-400) D-Dimer 1.35 mg/L FEU (0.00-0.49) H Iron Level 29 ug/dL (50-175) L Total Iron Binding Capacity 285 ug/dL (250-450) Percent Iron Saturation 10 % (15-50) L Unsaturated Iron Binding 256 ug/dL (112-346) Ferritin 18 NG/ML (8-388) Carcinoembryonic Antigen Pending Methylmalonic Acid Pending Folate 10.1 NG/ML (8.6-58.9) Homocystine 13.8 umol/L (0.0-15.0) Thyroid Stimulating Hormone (TSH) 0.211 uiU/mL (0.358-3.740) White Blood Count 5.2 K/UL (4.8-10.8) Red Blood Count 3.91 M/UL (4.20-5.40) L Hemoglobin 10.5 G/DL (12.0-16.0) L Hematocrit 33.2 % (37.0-47.0) L Mean Corpuscular Volume 85 FL (80-99) Mean Corpuscular Hemoglobin 26.9 PG (27.0-31.0) L Mean Corpuscular Hemoglobin Concent 31.6 G/DL (32.0-36.0) L Red Cell Distribution Width 14.7 % (11.6-14.8) Platelet Count 248 K/UL (150-450) Mean Platelet Volume 5.4 FL (6.5-10.1) L Neutrophils (%) (Auto) 52.0 % (45.0-75.0) Lymphocytes (%) (Auto) 34.5 % (20.0-45.0) Monocytes (%) (Auto) 10.0 % (1.0-10.0) Eosinophils (%) (Auto) 2.6 % (0.0-3.0) Basophils (%) (Auto) 0.9 % (0.0-2.0) Sodium Level 144 MMOL/L (136-145) Potassium Level 3.8 MMOL/L (3.5-5.1) Chloride Level 109 MMOL/L (98-107) H Carbon Dioxide Level 26 MMOL/L (21-32) Anion Gap 9 mmol/L (5-15) Blood Urea Nitrogen 19 mg/dL (7-18) H Creatinine 0.8 MG/DL (0.55-1.30) Estimat Glomerular Filtration Rate mL/min (>60) Glucose Level 90 MG/DL (74-106) Calcium Level 9.3 MG/DL (8.5-10.1) Troponin I 0.000 ng/mL (0.000-0.056) Pro-B-Type Natriuretic Peptide 1289 pg/mL (0-125) H Objective HEAD AND NECK: No JVD or carotid bruit. LUNGS: Clear. CARDIOVASCULAR: Regular S1 and S2 with no gallop or murmur. ABDOMEN: Soft. EXTREMITIES: 1+ pitting edema. Noe Crook MD Nov 23, 2017 10:38
--- NOTE | 2017-11-23 11:49 | Diagnostic Imaging Report ---
Indication: Shortness of breath Technique: Portable AP view of the chest Comparison: 11/21/2017 Findings: Heart size and mediastinal contours are stable. There is no definite focal airspace consolidation. Costophrenic sulci are sharp. No evidence of pneumothorax. There are degenerative changes in the spine. Surgical clips noted in the right upper quadrant. IMPRESSION: No significant interval change compared to 11/21/2017. No definite focal airspace consolidation, pleural effusion or pneumothorax.
[2017-11-23] MEDS ORDERED: Isovue-370 150ml vial INJ PRN (15:00)
--- NOTE | 2017-11-23 19:24 | Consultation ---
History of Present Illness General Date patient seen: Nov 23, 2017 Chief Complaint: Chest Pain Reason for Consultation: left breast pain / mass Present Illness HPI 72 year old female with multiple medical comorbidities presented to ED with complaints of chest pain and lower extremity swelling. history of DVT on anticoagulation with recurrence as per report. Currently under medical care and management. During admission stated that chest pain can sometimes be palpable and that she also noted a mass on her left medial breast. she states has never noted it prior and today was first time as she was palpating for pain. last mammogram over 10 years ago and does not recall where it was performed or results. does not believe it was abnormal. denies any other masses or breast abnormality. states mass comes and goes since she first noted it today. denies nipple discharge. surgery called to evaluate for painful breast mass. patient seen, chart reviewed, patient examined with nurse present. Allergies: Coded Allergies: HYDROMORPHONE (Unverified Allergy, Severe, 11/03/13) DIPHENHYDRAMINE (Verified Allergy, Intermediate, Itching, 11/22/17) ACETAMINOPHEN (Unverified Allergy, Mild, 11/03/13) AMOXICILLIN (Unverified Allergy, Mild, 11/03/13) CODEINE (Verified Allergy, Mild, 11/22/17) HYDROCODONE (Unverified Allergy, Mild, 11/03/13) PENICILLINS (Unverified Allergy, Mild, 11/03/13) TETRACYCLINES (Unverified Allergy, Mild, 11/03/13) ASPIRIN (Verified Allergy, Unknown, 01/31/15) MORPHINE (Verified Allergy, Unknown, 01/31/15) SULFA (SULFONAMIDE ANTIBIOTICS) (Verified Allergy, Unknown, 01/31/15) Uncoded Allergies: IV CONTRAST (Allergy, Intermediate, Itching, 11/22/17) MSG (Allergy, Intermediate, Itching, 11/22/17) Cipro,Dilaudid, Morphine sulfate (Allergy, Mild, 01/30/15) codein (Allergy, Mild, 11/03/13) gatricin (Allergy, Mild, 11/03/13) gatrinol (Allergy, Mild, 11/03/13) msg (Allergy, Mild, 11/03/13) Medication History Scheduled Amlodipine Besylate* (Amlodipine Besylate*), 5 MG ORAL DAILY, (Reported) Hydrochlorothiazide* (Hydrochlorothiazide*), 25 MG ORAL DAILY, (Reported) Scheduled PRN Hydrocodone Bit/Acetaminophen 5-325* ([place] 5-325*), 1 TAB ORAL Q6H PRN for For Pain, (Reported) Miscellaneous Medications Apixaban (Eliquis), 5 MG PO, (Reported) Apixaban (Eliquis), 5 MG PO, (Reported) Patient History History Provided By: Patient, Medical Record, PMD Healthcare decision maker PATIENT Resuscitation status Full Code Advanced Directive on File No Past Medical/Surgical History Past Medical/Surgical History: (1) Gastroenteritis (2) Minor head injury (3) Contusion of leg (4) Right leg DVT (5) Paranoid disorder (6) Sprain and strain of knee and leg (7) Radiculopathy of lumbosacral region (8) Right ankle sprain (9) Unstable gait (10) PE (pulmonary embolism) (11) Ankle strain (12) PE (pulmonary embolism) (13) Ankle strain (14) Paranoid disorder (15) Contusion of leg (16) Sprain and strain of knee and leg (17) Minor head injury (18) Unstable gait (19) Right leg DVT (20) Right ankle sprain (21) Radiculopathy of lumbosacral region (22) DVT (deep venous thrombosis) (23) Chest pain (24) Chest pain of uncertain etiology Review of Systems All Other Systems: negative except mentioned in HPI Physical Exam General Appearance: no apparent distress, alert Lines, tubes and drains: peripheral HEENT: normocephalic, mucous membranes moist Neck: normal inspection Respiratory/Chest: normal breath sounds, no respiratory distress, no accessory muscle use, other - bilateral chest wall tendernes on exam Breasts: no masses, no discharge, other - area of mass described as medial sternal mass which she cannot identifiy mass on exam. likely cartilage being palpated Cardiovascular/Chest: normal rate, regular rhythm Abdomen: normal bowel sounds, non tender, soft Extremities: normal range of motion Skin Exam: normal pigmentation, warm/dry Neurologic: alert, responsive Last 24 Hour Vital Signs Date Time Temp Pulse Resp B/P (MAP) Pulse Ox O2 Delivery O2 Flow Rate FiO2 11/23/17 12:00 76 11/23/17 09:00 Room Air 11/23/17 08:00 97.2 89 26 146/86 (106) 99 97.2 11/23/17 08:00 76 11/23/17 04:00 98.0 64 20 132/71 (91) 99 98.0 11/23/17 03:38 74 11/22/17 23:57 79 11/22/17 21:00 Room Air 11/22/17 20:00 98.2 93 19 141/73 (95) 97 98.2 11/22/17 19:23 93 Intake and Output 11/22/17 11/23/17 19:00 07:00 Intake Total 650 ml 240 ml Output Total 600 ml Balance 650 ml -360 ml Intake Oral 650 ml 240 ml Output Urine Total 600 ml # Voids 4 3 Laboratory Tests Test 11/23/17 06:30 White Blood Count 5.2 K/UL (4.8-10.8) Red Blood Count 3.91 M/UL (4.20-5.40) L Hemoglobin 10.5 G/DL (12.0-16.0) L Hematocrit 33.2 % (37.0-47.0) L Mean Corpuscular Volume 85 FL (80-99) Mean Corpuscular Hemoglobin 26.9 PG (27.0-31.0) L Mean Corpuscular Hemoglobin Concent 31.6 G/DL (32.0-36.0) L Red Cell Distribution Width 14.7 % (11.6-14.8) Platelet Count 248 K/UL (150-450) Mean Platelet Volume 5.4 FL (6.5-10.1) L Neutrophils (%) (Auto) 52.0 % (45.0-75.0) Lymphocytes (%) (Auto) 34.5 % (20.0-45.0) Monocytes (%) (Auto) 10.0 % (1.0-10.0) Eosinophils (%) (Auto) 2.6 % (0.0-3.0) Basophils (%) (Auto) 0.9 % (0.0-2.0) Sodium Level 144 MMOL/L (136-145) Potassium Level 3.8 MMOL/L (3.5-5.1) Chloride Level 109 MMOL/L (98-107) H Carbon Dioxide Level 26 MMOL/L (21-32) Anion Gap 9 mmol/L (5-15) Blood Urea Nitrogen 19 mg/dL (7-18) H Creatinine 0.8 MG/DL (0.55-1.30) Estimat Glomerular Filtration Rate mL/min (>60) Glucose Level 90 MG/DL (74-106) Calcium Level 9.3 MG/DL (8.5-10.1) Troponin I 0.000 ng/mL (0.000-0.056) Pro-B-Type Natriuretic Peptide 1289 pg/mL (0-125) H Height (Feet): 5 Height (Inches): 6.00 Weight (Pounds): 223 Medications Current Medications Medications (Trade) Dose Ordered Sig/Antonio Route PRN Reason Start Time Stop Time Status Last Admin Dose Admin Acetaminophen (Tylenol) 650 mg Q4H PRN ORAL Mild Pain (Pain Scale 1-3) 11/23/17 15:00 12/22/17 14:59 Apixaban (Eliquis) 5 mg Q12H ORAL 11/29/17 10:00 12/29/17 09:59 Apixaban (Eliquis) 10 mg Q12H ORAL 11/23/17 22:00 11/28/17 22:01 Dextrose (Dextrose 50%) 25 ml STAT PRN IV Hypoglycemia 11/23/17 15:00 12/23/17 14:59 Dextrose (Dextrose 50%) 50 ml STAT PRN IV Hypoglycemia 11/24/17 15:00 12/22/17 14:59 Diphenhydramine HCl (Benadryl) 25 mg Q6H PRN ORAL Itching/Pruritis 11/23/17 15:00 12/22/17 14:59 Docusate Sodium (Colace) 100 mg EVERY 12 HOURS ORAL 11/23/17 21:00 12/22/17 08:59 Famotidine (Pepcid) 40 mg DAILY ORAL 11/24/17 09:00 12/22/17 08:59 Hydrochlorothiazide (Hydrodiuril) 25 mg DAILY ORAL 11/24/17 09:00 12/22/17 08:59 Iopamidol (Isovue-370 150ml) 150 ml NOW PRN INJ Radiology Procedure 11/23/17 15:00 11/23/17 21:24 Ondansetron HCl (Zofran) 4 mg Q6H PRN IVP Nausea & Vomiting 11/23/17 15:00 9/5/18 14:59 Sodium Chloride 1,000 ml @ 50 mls/hr Q20H IVLG 11/23/17 15:00 12/22/17 14:59 11/23/17 15:16 Assessment/Plan Problem List: (1) Breast mass, left Assessment & Plan: area of mass described as medial sternal mass which she cannot identify mass on exam. likely cartilage being palpated. no discharge. no mass identified on exam. no lymph nodes identified. no nipple abnormality. does have significant chest pain bilaterally on palpation; likely costochondritis -strongly recommend mammogram as outpatient upon discharge. patient instructed on importance. -no acute surgical intervention necessary at this time. ICD Codes: N63.20 - Unspecified lump in the left breast, unspecified quadrant SNOMED: [id number] (2) Chest pain Assessment & Plan: bilateral palpable chest / rib pain. likely costochondritis. NSAIDS cardiac work up. thank you ICD Codes: R07.9 - Chest pain, unspecified SNOMED: [id number] Qualifiers: Everton Gupta Nov 23, 2017 19:24
[2017-11-23] MEDS: Eliquis 2.5mg tablet ORAL SCH (22:03)
--- NOTE | 2017-11-24 06:44 | General Progress Note ---
Assessment/Plan Assessment/Plan ASSESSMENT AND PLAN: #. 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 Initially she suffered her first DVT 2 years ago after a ankle fracture thus it was provoked especially after a long period of immobility. It became recurrent. It then occured on her left leg, so she has a hx of left leg dvt as well. Also has a history of PE, not massive in nature and not affected her heart. Her right lower extremity DVT recurred during the interval in which she was not taking her Eliquis. At this time, the patient has been given a dose of 100 mg dose of Lovenox --> given vaginal bleeding 11/24, recommend to restart eliquis 5mg po bid FOR LIFE as recurrent thromboembolic events (hold for one day 11/24) --> do not recommend ivc filter --> do not recommend thrombophilia panel given provoked nature of dvt/pe initially #. Anemia of chronic disease - mild at this time --> workup if hgb drops less than 10 #. Vaginal bleeding - given age>50, r/o endometrial thickening --> have ordered for pelvic us #. Breast pain - no evidence of mass --> appreciate surg recs #. Chest pain. Cardiology has been consulted. Currently, troponins are negative. --> appreciate Dr. Crook and Rito ramon --> refused stress test #. Hypertension. Stable. Adjust medications as deemed appropriate. #. Hypokalemia. Continue p.o. potassium supplementation as needed. Subjective Allergies: Coded Allergies: HYDROMORPHONE (Unverified Allergy, Severe, 11/03/13) DIPHENHYDRAMINE (Verified Allergy, Intermediate, Itching, 11/22/17) ACETAMINOPHEN (Unverified Allergy, Mild, 11/03/13) AMOXICILLIN (Unverified Allergy, Mild, 11/03/13) CODEINE (Verified Allergy, Mild, 11/22/17) HYDROCODONE (Unverified Allergy, Mild, 11/03/13) PENICILLINS (Unverified Allergy, Mild, 11/03/13) TETRACYCLINES (Unverified Allergy, Mild, 11/03/13) ASPIRIN (Verified Allergy, Unknown, 01/31/15) MORPHINE (Verified Allergy, Unknown, 01/31/15) SULFA (SULFONAMIDE ANTIBIOTICS) (Verified Allergy, Unknown, 01/31/15) Uncoded Allergies: IV CONTRAST (Allergy, Intermediate, Itching, 11/22/17) MSG (Allergy, Intermediate, Itching, 11/22/17) Cipro,Dilaudid, Morphine sulfate (Allergy, Mild, 01/30/15) codein (Allergy, Mild, 11/03/13) gatricin (Allergy, Mild, 11/03/13) gatrinol (Allergy, Mild, 11/03/13) msg (Allergy, Mild, 11/03/13) All Systems: reviewed and negative except above Subjective labs reviewd, bleeding in am, wants to hold eliquis today Objective Last 24 Hour Vital Signs Date Time Temp Pulse Resp B/P (MAP) Pulse Ox O2 Delivery O2 Flow Rate FiO2 11/23/17 21:00 Room Air 11/23/17 12:00 76 11/23/17 09:00 Room Air 11/23/17 08:00 97.2 89 26 146/86 (106) 99 97.2 11/23/17 08:00 76 Intake and Output 11/23/17 11/24/17 19:00 07:00 Intake Total 550 ml 50 ml Output Total 400 ml Balance 150 ml 50 ml Intake Oral 400 ml IV Total 150 ml 50 ml Output Urine Total 400 ml # Voids 2 Laboratory Tests 11/23/17 23:00: Stool Occult Blood [Pending] Height (Feet): 5 Height (Inches): 6.00 Weight (Pounds): 196 General Appearance: alert EENT: TMs normal Neck: normal alignment Cardiovascular: regular rhythm Respiratory/Chest: lungs clear Abdomen: non tender Extremities: non-tender Edema: 1+ Leg (L), 1+ Leg (R) Neurologic: alert Skin: warm/dry Masood Solis MD Nov 24, 2017 06:44
[2017-11-24 08:00] VITALS: BP 159/93
--- NOTE | 2017-11-24 08:58 | Nephrology Progress Note ---
Assessment/Plan Assessment/Plan 1. DVT/PE- Life long Eliquis required. Appreciate Pulm and Heme 2. Chest Pain- per cardiology VQ scan low probability 3. Disposition- plan on DC aminata to SNF once cleared by [facility] DISPATCH[facility] 4. HTN- stable on HCT 5. Vaginal Bleeding- on Eliguis - vagina US and [facility] DISPATCH[facility] DC today once cleared by [facility]IL[facility] DISPATCH[facility] to SNF Subjective Date patient seen: Nov 24, 2017 Time patient seen: 08:50 ROS Limited/Unobtainable: No Genitourinary: Reports: other - vaginal bleeding Allergies: Coded Allergies: HYDROMORPHONE (Unverified Allergy, Severe, 11/03/13) DIPHENHYDRAMINE (Verified Allergy, Intermediate, Itching, 11/22/17) ACETAMINOPHEN (Unverified Allergy, Mild, 11/03/13) AMOXICILLIN (Unverified Allergy, Mild, 11/03/13) CODEINE (Verified Allergy, Mild, 11/22/17) HYDROCODONE (Unverified Allergy, Mild, 11/03/13) PENICILLINS (Unverified Allergy, Mild, 11/03/13) TETRACYCLINES (Unverified Allergy, Mild, 11/03/13) ASPIRIN (Verified Allergy, Unknown, 01/31/15) MORPHINE (Verified Allergy, Unknown, 01/31/15) SULFA (SULFONAMIDE ANTIBIOTICS) (Verified Allergy, Unknown, 01/31/15) Uncoded Allergies: IV CONTRAST (Allergy, Intermediate, Itching, 11/22/17) MSG (Allergy, Intermediate, Itching, 11/22/17) Cipro,Dilaudid, Morphine sulfate (Allergy, Mild, 01/30/15) codein (Allergy, Mild, 11/03/13) gatricin (Allergy, Mild, 11/03/13) gatrinol (Allergy, Mild, 11/03/13) msg (Allergy, Mild, 11/03/13) All Systems: reviewed and negative except above Subjective Patient feeling better. Had vaginal bleeding overnite Objective Last 24 Hour Vital Signs Date Time Temp Pulse Resp B/P (MAP) Pulse Ox O2 Delivery O2 Flow Rate FiO2 11/23/17 21:00 Room Air 11/23/17 12:00 76 11/23/17 09:00 Room Air Intake and Output 11/23/17 11/24/17 19:00 07:00 Intake Total 550 ml 50 ml Output Total 400 ml Balance 150 ml 50 ml Intake Oral 400 ml IV Total 150 ml 50 ml Output Urine Total 400 ml # Voids 2 Laboratory Tests 11/23/17 23:00: Stool Occult Blood [Pending] Height (Feet): 5 Height (Inches): 6.00 Weight (Pounds): 196 General Appearance: WD/WN, no apparent distress EENT: PERRL/EOMI Neck: non-tender, normal alignment Cardiovascular: normal peripheral pulses, normal rate Respiratory/Chest: lungs clear, normal breath sounds Abdomen: non tender, soft Edema: no edema noted Arm (L), no edema noted Arm (R), no edema noted Leg (L), no edema noted Leg (R), no edema noted Pedal (L), no edema noted Pedal (R), no edema noted Generalized Allen Bonilla M.D. Nov 24, 2017 08:58
--- NOTE | 2017-11-24 09:03 | Discharge Instructions ---
Discharge Instructions Discharge Instructions Follow Up Orders DC to SNF once cleared by SNF For Congestive Heart Failure Reminder Report to your physician any weight gain of 5 pounds or more in one week. Allen Bonilla M.D. Nov 24, 2017 09:03
[2017-11-24] MEDS: Docusate 100mg cap ORAL SCH ×2 (09:22→20:23)
[2017-11-24 09:45] LABS: BASOPHILS % (AUTO) 0.8 % (0.0-2.0); EOSINOPHILS % (AUTO) 2.6 % (0.0-3.0); HEMATOCRIT 35.3 % (37.0-47.0); HEMOGLOBIN 11.1 G/DL (12.0-16.0); LYMPHOCYTES % (AUTO) 30.5 % (20.0-45.0); MEAN CORPUSCULAR VOLUME 84 FL (80-99); MONOCYTES % (AUTO) 6.7 % (1.0-10.0); NEUTROPHILS % (AUTO) 59.4 % (45.0-75.0); PLATELET COUNT 257 K/UL (150-450); RED BLOOD COUNT 4.21 M/UL (4.20-5.40); RED CELL DISTRIBUTION WIDTH 14.7 % (11.6-14.8)
[2017-11-24] MEDS: Eliquis 2.5mg tablet ORAL SCH ×2 (10:00→22:00)
[2017-11-24 10:04] LABS: ANION GAP 9 mmol/L (5-15); BLOOD UREA NITROGEN 20 mg/dL (7-18); CALCIUM 8.9 MG/DL (8.5-10.1); CARBON DIOXIDE 25 MMOL/L (21-32); CHLORIDE 106 MMOL/L (98-107); CREATININE 1.1 MG/DL (0.55-1.30); POTASSIUM 3.6 MMOL/L (3.5-5.1); SODIUM 140 MMOL/L (136-145)
--- NOTE | 2017-11-24 11:05 | Cardiology Progress Note ---
Assessment/Plan Status: stable Assessment/Plan Assessment/Plan Assessment/Plan 1. Deep venous thrombosis. On Eliquis 5 mg b.i.d. Ventilation/perfusion scan is negative for pulmonary embolism. Offered stress test but she refused 2. Chest pain, atypical. The patient was ruled out for myocardial infarction. EKG was read as acute ischemic changes. Echocardiogram showed Nl EF 65% 3. Hypertension, on hydrochlorothiazide and p.r.n. clonidine. May need additional medication to achieve goals. Discussed low salt diet and increase free water consumption 4. Vaginal bleeding - ultrasound ordered, eliquis held for one day 5. Dispo planning with outpatient follow up pending vaginal ultrasound Subjective Cardiovascular: Reports: no symptoms Respiratory: Reports: no symptoms Gastrointestinal/Abdominal: Reports: no symptoms Genitourinary: Reports: no symptoms Subjective No acute events, no complaints, vitals stable. Objective Last 24 Hour Vital Signs Date Time Temp Pulse Resp B/P (MAP) Pulse Ox O2 Delivery O2 Flow Rate FiO2 11/24/17 08:15 Room Air 11/24/17 08:00 98.4 85 18 159/93 (115) 96 98.4 11/23/17 21:00 Room Air 11/23/17 12:00 76 General Appearance: no apparent distress, alert EENT: PERRL/EOMI, normal ENT inspection Neck: non-tender, normal alignment, supple, normal inspection, no JVD Rhythm: NSR Cardiovascular: normal peripheral pulses, normal rate, regular rhythm Respiratory/Chest: chest wall non-tender, lungs clear Abdomen: normal bowel sounds, non tender Extremities: normal range of motion, non-tender Neurologic: turn laster II-XII grossly normal Intake and Output 11/23/17 11/24/17 19:00 07:00 Intake Total 550 ml 50 ml Output Total 400 ml Balance 150 ml 50 ml Intake Oral 400 ml IV Total 150 ml 50 ml Output Urine Total 400 ml # Voids 2 Laboratory Tests Test 11/23/17 23:00 11/24/17 09:32 Stool Occult Blood Pending White Blood Count 5.0 K/UL (4.8-10.8) Red Blood Count 4.21 M/UL (4.20-5.40) Hemoglobin 11.1 G/DL (12.0-16.0) L Hematocrit 35.3 % (37.0-47.0) L Mean Corpuscular Volume 84 FL (80-99) Mean Corpuscular Hemoglobin 26.3 PG (27.0-31.0) L Mean Corpuscular Hemoglobin Concent 31.4 G/DL (32.0-36.0) L Red Cell Distribution Width 14.7 % (11.6-14.8) Platelet Count 257 K/UL (150-450) Mean Platelet Volume 5.0 FL (6.5-10.1) L Neutrophils (%) (Auto) 59.4 % (45.0-75.0) Lymphocytes (%) (Auto) 30.5 % (20.0-45.0) Monocytes (%) (Auto) 6.7 % (1.0-10.0) Eosinophils (%) (Auto) 2.6 % (0.0-3.0) Basophils (%) (Auto) 0.8 % (0.0-2.0) Sodium Level 140 MMOL/L (136-145) Potassium Level 3.6 MMOL/L (3.5-5.1) Chloride Level 106 MMOL/L (98-107) Carbon Dioxide Level 25 MMOL/L (21-32) Anion Gap 9 mmol/L (5-15) Blood Urea Nitrogen 20 mg/dL (7-18) H Creatinine 1.1 MG/DL (0.55-1.30) Estimat Glomerular Filtration Rate mL/min (>60) Glucose Level 141 MG/DL (74-106) H Calcium Level 8.9 MG/DL (8.5-10.1) Medardo Oshea M.D. Nov 24, 2017 11:05
[2017-11-24 12:00] VITALS: BP 127/71
--- NOTE | 2017-11-24 13:06 | Diagnostic Imaging Report ---
Indication: Vaginal bleeding in a postmenopausal female Technique: Transabdominal and endovaginal pelvic ultrasound was performed. Findings: The uterus measures 7.2 x 2.9 x 3.2 cm. The endometrium is borderline thickened, measuring 4.8 mm in thickness. Some fluid is noted within the endometrial canal as well as trace fluid in the cervix. There is some nabothian cysts in the cervix. There is a hypoechoic mass in the posterior myometrium which measures approximately 1.2 cm most likely representing a fibroid. Additional, similar-appearing mass is noted more inferiorly in the uterus and measures approximately 1 cm. The ovaries are not visualized on transabdominal or transvaginal scanning. No free pelvic fluid. IMPRESSION: * Borderline endometrial thickening with endometrial fluid versus cyst. Given history of abnormal postmenopausal bleeding, recommend gynecological evaluation for possible endometrial sampling. * Probable uterine fibroids. * Ovaries not identified on transabdominal or transvaginal scanning. * No free pelvic fluid.
[2017-11-24 16:00] VITALS: BP 115/82
--- NOTE | 2017-11-24 16:52 | Pulmonology Progress Note ---
Assessment/Plan Assessment/Plan IMPRESSION: 1. DVT. 2. History of pulmonary embolism. 3. Chest pain. 4. Possible pleurisy. 5. Evidence of nausea. PLAN eliquis monitor as is imaging noted VQ low prob cards noted care reviewed heme noted impression, plan, and exam edited and reviewed in detail care discussed with RN Subjective Allergies: Coded Allergies: HYDROMORPHONE (Unverified Allergy, Severe, 11/03/13) DIPHENHYDRAMINE (Verified Allergy, Intermediate, Itching, 11/22/17) ACETAMINOPHEN (Unverified Allergy, Mild, 11/03/13) AMOXICILLIN (Unverified Allergy, Mild, 11/03/13) CODEINE (Verified Allergy, Mild, 11/22/17) HYDROCODONE (Unverified Allergy, Mild, 11/03/13) PENICILLINS (Unverified Allergy, Mild, 11/03/13) TETRACYCLINES (Unverified Allergy, Mild, 11/03/13) ASPIRIN (Verified Allergy, Unknown, 01/31/15) MORPHINE (Verified Allergy, Unknown, 01/31/15) SULFA (SULFONAMIDE ANTIBIOTICS) (Verified Allergy, Unknown, 01/31/15) Uncoded Allergies: IV CONTRAST (Allergy, Intermediate, Itching, 11/22/17) MSG (Allergy, Intermediate, Itching, 11/22/17) Cipro,Dilaudid, Morphine sulfate (Allergy, Mild, 01/30/15) codein (Allergy, Mild, 11/03/13) gatricin (Allergy, Mild, 11/03/13) gatrinol (Allergy, Mild, 11/03/13) msg (Allergy, Mild, 11/03/13) Subjective no cp or sob vq reviewed Objective Last 24 Hour Vital Signs Date Time Temp Pulse Resp B/P (MAP) Pulse Ox O2 Delivery O2 Flow Rate FiO2 11/24/17 16:00 99.3 82 18 115/82 (93) 99 99.3 11/24/17 12:00 98.7 80 18 127/71 (89) 98 98.7 11/24/17 08:15 Room Air 11/24/17 08:00 98.4 85 18 159/93 (115) 96 98.4 11/23/17 21:00 Room Air Intake and Output 11/23/17 11/24/17 19:00 07:00 Intake Total 550 ml 50 ml Output Total 400 ml Balance 150 ml 50 ml Intake Oral 400 ml IV Total 150 ml 50 ml Output Urine Total 400 ml # Voids 2 Objective GENERAL: A well-developed female, comfortable at present. NAD HEENT: Negative. clear oropharynx NECK: Supple. LUNGS: Fairly clear and symmetric. without rhonchi or wheeze CARDIAC: Normal S1, S2. Regular rate and rhythm without murmurs, rubs, or gallops. ABDOMEN: Soft, nontender, and nondistended. no HSM EXTREMITIES: No cyanosis or clubbing. There is trace edema. NEUROLOGIC: Diffusely nonfocal overall. Laboratory Tests 11/23/17 23:00: Stool Occult Blood Negative 11/24/17 09:32: White Blood Count 5.0, Red Blood Count 4.21, Hemoglobin 11.1L, Hematocrit 35.3L , Mean Corpuscular Volume 84, Mean Corpuscular Hemoglobin 26.3L, Mean Corpuscular Hemoglobin Concent 31.4L, Red Cell Distribution Width 14.7, Platelet Count 257, Mean Platelet Volume 5.0L, Neutrophils (%) (Auto) 59.4, Lymphocytes (%) (Auto) 30.5, Monocytes (%) (Auto) 6.7, Eosinophils (%) (Auto) 2.6, Basophils (%) (Auto) 0.8, Sodium Level 140, Potassium Level 3.6, Chloride Level 106, Carbon Dioxide Level 25, Anion Gap 9, Blood Urea Nitrogen 20H, Creatinine 1.1, Estimat Glomerular Filtration Rate , Glucose Level 141H, Calcium Level 8.9 Current Medications Medications (Trade) Dose Ordered Sig/Antonio Route PRN Reason Start Time Stop Time Status Last Admin Dose Admin Acetaminophen (Tylenol) 650 mg Q4H PRN ORAL Mild Pain (Pain Scale 1-3) 11/23/17 15:00 12/22/17 14:59 11/24/17 01:44 Apixaban (Eliquis) 5 mg Q12HR ORAL 11/29/17 09:00 12/29/17 08:59 Apixaban (Eliquis) 10 mg Q12H ORAL 11/23/17 22:00 11/28/17 22:01 11/23/17 22:03 Dextrose (Dextrose 50%) 25 ml STAT PRN IV Hypoglycemia 11/23/17 15:00 12/23/17 14:59 Dextrose (Dextrose 50%) 50 ml STAT PRN IV Hypoglycemia 11/24/17 15:00 12/22/17 14:59 Diphenhydramine HCl (Benadryl) 25 mg Q6H PRN ORAL Itching/Pruritis 11/23/17 15:00 12/22/17 14:59 Docusate Sodium (Colace) 100 mg EVERY 12 HOURS ORAL 11/23/17 21:00 12/22/17 08:59 11/24/17 09:22 Famotidine (Pepcid) 40 mg DAILY ORAL 11/24/17 09:00 12/22/17 08:59 11/24/17 09:22 Hydrochlorothiazide (Hydrodiuril) 25 mg DAILY ORAL 11/24/17 09:00 12/22/17 08:59 11/24/17 09:22 Ondansetron HCl (Zofran) 4 mg Q6H PRN IVP Nausea & Vomiting 11/23/17 15:00 12/22/17 14:59 Sodium Chloride 1,000 ml @ 50 mls/hr Q20H IVLG 11/23/17 15:00 12/22/17 14:59 11/24/17 01:43 Edi Veras MD Nov 24, 2017 16:52
--- NOTE | 2017-11-24 17:22 | General Surgery Progress Note ---
General Surgery-Progress Note Subjective Symptoms: improved Additional Comments states better today. lest chest and breast pain. states currently does not feel lump. Objective Last 24 Hour Vital Signs Date Time Temp Pulse Resp B/P (MAP) Pulse Ox O2 Delivery O2 Flow Rate FiO2 11/24/17 16:00 99.3 82 18 115/82 (93) 99 99.3 11/24/17 12:00 98.7 80 18 127/71 (89) 98 98.7 11/24/17 08:15 Room Air 11/24/17 08:00 98.4 85 18 159/93 (115) 96 98.4 11/23/17 21:00 Room Air I&O Intake and Output 11/23/17 11/24/17 19:00 07:00 Intake Total 550 ml 50 ml Output Total 400 ml Balance 150 ml 50 ml Intake Oral 400 ml IV Total 150 ml 50 ml Output Urine Total 400 ml # Voids 2 Drains: none Cardiovascular: RSR Respiratory: clear Abdomen: soft, flat, non-tender, present bowel sounds Extremities: no cyanosis Laboratory Tests Test 11/23/17 23:00 11/24/17 09:32 Stool Occult Blood Negative (NEGATIVE) White Blood Count 5.0 K/UL (4.8-10.8) Red Blood Count 4.21 M/UL (4.20-5.40) Hemoglobin 11.1 G/DL (12.0-16.0) L Hematocrit 35.3 % (37.0-47.0) L Mean Corpuscular Volume 84 FL (80-99) Mean Corpuscular Hemoglobin 26.3 PG (27.0-31.0) L Mean Corpuscular Hemoglobin Concent 31.4 G/DL (32.0-36.0) L Red Cell Distribution Width 14.7 % (11.6-14.8) Platelet Count 257 K/UL (150-450) Mean Platelet Volume 5.0 FL (6.5-10.1) L Neutrophils (%) (Auto) 59.4 % (45.0-75.0) Lymphocytes (%) (Auto) 30.5 % (20.0-45.0) Monocytes (%) (Auto) 6.7 % (1.0-10.0) Eosinophils (%) (Auto) 2.6 % (0.0-3.0) Basophils (%) (Auto) 0.8 % (0.0-2.0) Sodium Level 140 MMOL/L (136-145) Potassium Level 3.6 MMOL/L (3.5-5.1) Chloride Level 106 MMOL/L (98-107) Carbon Dioxide Level 25 MMOL/L (21-32) Anion Gap 9 mmol/L (5-15) Blood Urea Nitrogen 20 mg/dL (7-18) H Creatinine 1.1 MG/DL (0.55-1.30) Estimat Glomerular Filtration Rate mL/min (>60) Glucose Level 141 MG/DL (74-106) H Calcium Level 8.9 MG/DL (8.5-10.1) Plan Problems: (1) Breast mass, left Assessment & Plan: area of mass described as medial sternal mass which she cannot identify mass on exam. likely cartilage being palpated. no discharge. no mass identified on exam. no lymph nodes identified. no nipple abnormality. does have significant chest pain bilaterally on palpation; likely costochondritis -strongly recommend mammogram as outpatient upon discharge. patient instructed on importance. -no acute surgical intervention necessary at this time. (2) Chest pain Assessment & Plan: bilateral palpable chest / rib pain. likely costochondritis. NSAIDS cardiac work up. thank you Everton Gupta Nov 24, 2017 17:22
[2017-11-24] MEDS ORDERED: traMADol 50mg tab ORAL SCH (17:30)
--- NOTE | 2017-11-24 18:18 | Consultation ---
Consult Note Consult Note GYNECOLOGY CONSULT NOTE CC: Postmenopausal bleeding HPI: Patient is a 72yo admitted for CP/SOB who was found to have vaginal bleeding overnight. Nurses report the linens were soiled, but since that time the patient has only had spotting. Chux currently clean and dry. Patient reports that she woke up and the bed was "soaked" with blood. She has been on Elaquis for VTE, however last dose held in the setting of bleeding. Her chest pain has been present for 6 months, but prior to coming to the ED the patient states that it got worse and she was worried she had another PE. She has DVT in the right ankle, hx of DVT in the left leg, and hx of PE. PMH: HTN, head trauma, b/l DVTs, PE 6mo ago, hx of paranoia PSH: Tonsillectomy as a child MEDS: Elaquis (held), Pepcid, HCTZ ALLERGIES: ASA, Codeine, Tylenol, Amoxicillin, Cipro, Dilaudid, Morphine, Benadryl, Hydrocodone, Hydromorphone, IV contrast, Penicillins, MSG, Tetracycline, Gatricin, Gatranol OBHx: - Term x 6 (children ages 41-56), demise at 5 mo, SAB x 3, GYNHx: Last HEDGE TRIMMER visit 3-4y ago, patient reports getting monthly menses until she was 61 y/o. No other hx of PMB. Known fibroids, no cysts. SOCHx: Homeless, living in hotels. Typically resides in [place]. FAMHx: No known hx of CA VITALS: Tmax 99.3, BP 115/82, P 82, RR 18, O2 99% RA EXAM: Gen: Alert & oriented HEENT: MMM, OP clear Neck: No obvious thyromegaly CV: No tachycardia Pulm: No increased work of breathing, voice raspy and possible wheezes appreciated Abd: Soft, NT Pelvic: NEFG, no masses or lesions. Bimanual revealed scant pink discharge, no active bleeding. Uterus mobile, cervix palpable with likely Nabothian cysts, and exam well tolerated Ext: Bilateral swelling in lower extremities, right leg tender to touch. Skin: dry LABS: Laboratory Tests Test 11/23/17 06:30 11/23/17 23:00 11/24/17 09:32 White Blood Count 5.2 K/UL (4.8-10.8) 5.0 K/UL (4.8-10.8) Red Blood Count 3.91 M/UL (4.20-5.40) L 4.21 M/UL (4.20-5.40) Hemoglobin 10.5 G/DL (12.0-16.0) L 11.1 G/DL (12.0-16.0) L Hematocrit 33.2 % (37.0-47.0) L 35.3 % (37.0-47.0) L Mean Corpuscular Volume 85 FL (80-99) 84 FL (80-99) Mean Corpuscular Hemoglobin 26.9 PG (27.0-31.0) L 26.3 PG (27.0-31.0) L Mean Corpuscular Hemoglobin Concent 31.6 G/DL (32.0-36.0) L 31.4 G/DL (32.0-36.0) L Red Cell Distribution Width 14.7 % (11.6-14.8) 14.7 % (11.6-14.8) Platelet Count 248 K/UL (150-450) 257 K/UL (150-450) Mean Platelet Volume 5.4 FL (6.5-10.1) L 5.0 FL (6.5-10.1) L Neutrophils (%) (Auto) 52.0 % (45.0-75.0) 59.4 % (45.0-75.0) Lymphocytes (%) (Auto) 34.5 % (20.0-45.0) 30.5 % (20.0-45.0) Monocytes (%) (Auto) 10.0 % (1.0-10.0) 6.7 % (1.0-10.0) Eosinophils (%) (Auto) 2.6 % (0.0-3.0) 2.6 % (0.0-3.0) Basophils (%) (Auto) 0.9 % (0.0-2.0) 0.8 % (0.0-2.0) Sodium Level 144 MMOL/L (136-145) 140 MMOL/L (136-145) Potassium Level 3.8 MMOL/L (3.5-5.1) 3.6 MMOL/L (3.5-5.1) Chloride Level 109 MMOL/L (98-107) H 106 MMOL/L (98-107) Carbon Dioxide Level 26 MMOL/L (21-32) 25 MMOL/L (21-32) Anion Gap 9 mmol/L (5-15) 9 mmol/L (5-15) Blood Urea Nitrogen 19 mg/dL (7-18) H 20 mg/dL (7-18) H Creatinine 0.8 MG/DL (0.55-1.30) 1.1 MG/DL (0.55-1.30) Estimate Glomerular Filtration Rate mL/min (>60) mL/min (>60) Glucose Level 90 MG/DL (74-106) 141 MG/DL (74-106) H Calcium Level 9.3 MG/DL (8.5-10.1) 8.9 MG/DL (8.5-10.1) Troponin I 0.000 ng/mL (0.000-0.056) Pro-B-Type Natriuretic Peptide 1289 pg/mL (0-125) H Stool Occult Blood Negative (NEGATIVE) IMAGING: Pelvic US: Findings: The uterus measures 7.2 x 2.9 x 3.2 cm. The endometrium is borderline thickened, measuring 4.8 mm in thickness. Some fluid is noted within the endometrial canal as well as trace fluid in the cervix. There is some nabothian cysts in the cervix. There is a hypoechoic mass in the posterior myometrium which measures approximately 1.2 cm most likely representing a fibroid. Additional, similar-appearing mass is noted more inferiorly in the uterus and measures approximately 1 cm. The ovaries are not visualized on transabdominal or transvaginal scanning. No free pelvic fluid. IMPRESSION: * Borderline endometrial thickening with endometrial fluid versus cyst. Given history of abnormal postmenopausal bleeding, recommend gynecological evaluation for possible endometrial sampling. * Probable uterine fibroids. * Ovaries not identified on transabdominal or transvaginal scanning. * No free pelvic fluid. Assessment/Plan 72yo with postmenopausal bleeding in the setting of anticoagulation, no evidence of active bleeding currently, however borderline thickened endometrial stripe on US - Postmenopausal bleeding requires evaluation with endometrial sampling, however this can be done as an outpatient given that the patient has no signs of active bleeding and is clinically stable - H/H stable, no e/o hemodynamic instability - No evidence of PE on recent imaging - Given DVT and risk of recurrent PE, recommend restarting her anticoagulation if deemed appropriate by the primary team - No indication for emergent surgical intervention at this time - Recommend outpatient [facility] follow up for endometrial biopsy vs hysteroscopy/D&C - My information was given to the patient, she can follow up in my office if desired Thank you for this interesting consult. Signed: MD Ryan Shelley Carla M.D. Nov 24, 2017 18:18
[2017-11-25 08:00] VITALS: BP 146/82
--- NOTE | 2017-11-25 08:31 | Nephrology Progress Note ---
Assessment/Plan Assessment/Plan 1. DVT/PE- Life long Eliquis required. - Appreciate Pulm and Heme. DC today 2. Chest Pain- per cardiology. Resolved VQ scan low probability 3. Disposition- DC to SNF 4. HTN- stable on HCT 5. Vaginal Bleeding- on Eliguis - cleared by GREEN PIPEFITTER Subjective Date patient seen: Nov 25, 2017 Time patient seen: 08:28 ROS Limited/Unobtainable: No Allergies: Coded Allergies: HYDROMORPHONE (Unverified Allergy, Severe, 11/03/13) DIPHENHYDRAMINE (Verified Allergy, Intermediate, Itching, 11/22/17) ACETAMINOPHEN (Unverified Allergy, Mild, 11/03/13) AMOXICILLIN (Unverified Allergy, Mild, 11/03/13) CODEINE (Verified Allergy, Mild, 11/22/17) HYDROCODONE (Unverified Allergy, Mild, 11/03/13) PENICILLINS (Unverified Allergy, Mild, 11/03/13) TETRACYCLINES (Unverified Allergy, Mild, 11/03/13) ASPIRIN (Verified Allergy, Unknown, 01/31/15) MORPHINE (Verified Allergy, Unknown, 01/31/15) SULFA (SULFONAMIDE ANTIBIOTICS) (Verified Allergy, Unknown, 01/31/15) Uncoded Allergies: IV CONTRAST (Allergy, Intermediate, Itching, 11/22/17) MSG (Allergy, Intermediate, Itching, 11/22/17) Cipro,Dilaudid, Morphine sulfate (Allergy, Mild, 01/30/15) codein (Allergy, Mild, 11/03/13) gatricin (Allergy, Mild, 11/03/13) gatrinol (Allergy, Mild, 11/03/13) msg (Allergy, Mild, 11/03/13) All Systems: reviewed and negative except above Subjective Patient feeling better. Awaiting DC today Objective Last 24 Hour Vital Signs Date Time Temp Pulse Resp B/P (MAP) Pulse Ox O2 Delivery O2 Flow Rate FiO2 11/24/17 21:00 Room Air 11/24/17 16:00 99.3 82 18 115/82 (93) 99 99.3 11/24/17 12:00 98.7 80 18 127/71 (89) 98 98.7 Intake and Output 11/24/17 11/25/17 19:00 07:00 Intake Total 620 ml 480 ml Balance 620 ml 480 ml Intake Oral 620 ml 480 ml # Voids 3 2 # Bowel Movements 1 Laboratory Tests 11/24/17 09:32: White Blood Count 5.0, Red Blood Count 4.21, Hemoglobin 11.1L, Hematocrit 35.3L , Mean Corpuscular Volume 84, Mean Corpuscular Hemoglobin 26.3L, Mean Corpuscular Hemoglobin Concent 31.4L, Red Cell Distribution Width 14.7, Platelet Count 257, Mean Platelet Volume 5.0L, Neutrophils (%) (Auto) 59.4, Lymphocytes (%) (Auto) 30.5, Monocytes (%) (Auto) 6.7, Eosinophils (%) (Auto) 2.6, Basophils (%) (Auto) 0.8, Sodium Level 140, Potassium Level 3.6, Chloride Level 106, Carbon Dioxide Level 25, Anion Gap 9, Blood Urea Nitrogen 20H, Creatinine 1.1, Estimat Glomerular Filtration Rate , Glucose Level 141H, Calcium Level 8.9 Height (Feet): 5 Height (Inches): 6.00 Weight (Pounds): 196 General Appearance: WD/WN, no apparent distress EENT: PERRL/EOMI, normal ENT inspection Neck: non-tender, normal alignment Cardiovascular: normal peripheral pulses, normal rate Respiratory/Chest: chest wall non-tender, lungs clear Abdomen: normal bowel sounds, non tender Edema: no edema noted Arm (L), no edema noted Arm (R), no edema noted Leg (L), no edema noted Leg (R), no edema noted Pedal (L), no edema noted Pedal (R), no edema noted Generalized Allen Bonilla M.D. Nov 25, 2017 08:31
[2017-11-25] MEDS: Docusate 100mg cap ORAL SCH ×2 (09:28→20:56)
--- NOTE | 2017-11-25 10:38 | General Progress Note ---
Assessment/Plan Status: stable Assessment/Plan ASSESSMENT AND PLAN: #. 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 Initially she suffered her first DVT 2 years ago after a ankle fracture thus it was provoked especially after a long period of immobility. It became recurrent. It then occured on her left leg, so she has a hx of left leg dvt as well. Also has a history of PE, not massive in nature and not affected her heart. Her right lower extremity DVT recurred during the interval in which she was not taking her Eliquis. At this time, the patient has been given a dose of 100 mg dose of Lovenox --> given vaginal bleeding 11/24, recommend to restart eliquis 5mg po bid FOR LIFE as recurrent thromboembolic events (hold for one day 11/24) --> do not recommend ivc filter --> do not recommend thrombophilia panel given provoked nature of dvt/pe initially #. Anemia of chronic disease - mild at this time --> workup if hgb drops less than 10 #. Vaginal bleeding - given age>50, r/o endometrial thickening --> have ordered for pelvic us --> 11/24: US abd: Borderline endometrial thickening with endometrial fluid versus cyst. Probable uterine fibroids. --> CIGAR BRANDER eval needed. --> 11/24: Dr. Davis PLANT PROTECTION GUARD saw patient and reports patient is cleared for discharge and can f/u as outpatient #. Breast pain - no evidence of mass. --> appreciate surg recs #. Chest pain. Cardiology has been consulted. Currently, troponins are negative. --> appreciate Dr. Crook and Rito recs --> refused stress test #. Hypertension. Stable. Adjust medications as deemed appropriate. #. Hypokalemia. Continue p.o. potassium supplementation as needed. The time the note was entered does not necessarily correspond to the time the patient was seen. Subjective Date patient seen: Nov 25, 2017 ROS Limited/Unobtainable: Yes Hematologic/Lymphatic: Reports: anemia Allergies: Coded Allergies: HYDROMORPHONE (Unverified Allergy, Severe, 11/03/13) DIPHENHYDRAMINE (Verified Allergy, Intermediate, Itching, 11/22/17) ACETAMINOPHEN (Unverified Allergy, Mild, 11/03/13) AMOXICILLIN (Unverified Allergy, Mild, 11/03/13) CODEINE (Verified Allergy, Mild, 11/22/17) HYDROCODONE (Unverified Allergy, Mild, 11/03/13) PENICILLINS (Unverified Allergy, Mild, 11/03/13) TETRACYCLINES (Unverified Allergy, Mild, 11/03/13) ASPIRIN (Verified Allergy, Unknown, 01/31/15) MORPHINE (Verified Allergy, Unknown, 01/31/15) SULFA (SULFONAMIDE ANTIBIOTICS) (Verified Allergy, Unknown, 01/31/15) Uncoded Allergies: IV CONTRAST (Allergy, Intermediate, Itching, 11/22/17) MSG (Allergy, Intermediate, Itching, 11/22/17) Cipro,Dilaudid, Morphine sulfate (Allergy, Mild, 01/30/15) codein (Allergy, Mild, 11/03/13) gatricin (Allergy, Mild, 11/03/13) gatrinol (Allergy, Mild, 11/03/13) msg (Allergy, Mild, 11/03/13) All Systems: reviewed and negative except above Subjective Pt awake and alert. No acute events. Dr. Davis PLANT PROTECTION GUARD saw patient and reports patient is cleared for discharge and can f/u as outpatient. Awaiting SNF placement. Objective Last 24 Hour Vital Signs Date Time Temp Pulse Resp B/P (MAP) Pulse Ox O2 Delivery O2 Flow Rate FiO2 11/24/17 21:00 Room Air 11/24/17 16:00 99.3 82 18 115/82 (93) 99 99.3 11/24/17 12:00 98.7 80 18 127/71 (89) 98 98.7 Intake and Output 11/24/17 11/25/17 19:00 07:00 Intake Total 620 ml 480 ml Balance 620 ml 480 ml Intake Oral 620 ml 480 ml # Voids 3 2 # Bowel Movements 1 Height (Feet): 5 Height (Inches): 6.00 Weight (Pounds): 196 General Appearance: no apparent distress, alert EENT: PERRL/EOMI Neck: normal alignment Cardiovascular: normal peripheral pulses Respiratory/Chest: no respiratory distress Abdomen: normal bowel sounds, soft Masood Solis MD Nov 25, 2017 10:38
[2017-11-25 12:00] VITALS: BP 135/87
--- NOTE | 2017-11-25 12:22 | Cardiology Progress Note ---
Assessment/Plan Status: stable Assessment/Plan Assessment/Plan Assessment/Plan 1. Deep venous thrombosis. On Eliquis 5 mg b.i.d. Ventilation/perfusion scan is negative for pulmonary embolism. Offered stress test but she refused 2. Chest pain, atypical. The patient was ruled out for myocardial infarction. EKG was read as acute ischemic changes. Echocardiogram showed Nl EF 65% 3. Hypertension, on hydrochlorothiazide and p.r.n. clonidine. May need additional medication to achieve goals. Discussed low salt diet and increase free water consumption 4. Vaginal bleeding - ultrasound ordered, eliquis held for one day - ok to restart 5. Dispo planning with outpatient follow up pending vaginal ultrasound Subjective Cardiovascular: Reports: no symptoms Respiratory: Reports: no symptoms Gastrointestinal/Abdominal: Reports: no symptoms Genitourinary: Reports: no symptoms Subjective No acute events, no complaints, vitals stable. Awaiting dispo to SNF, re - start eliqus per FINAL INSPECTOR SHUTTLE Objective Last 24 Hour Vital Signs Date Time Temp Pulse Resp B/P (MAP) Pulse Ox O2 Delivery O2 Flow Rate FiO2 11/25/17 08:00 98.0 87 20 146/82 (103) 96 98.0 11/24/17 21:00 Room Air 11/24/17 16:00 99.3 82 18 115/82 (93) 99 99.3 General Appearance: no apparent distress EENT: PERRL/EOMI, normal ENT inspection Neck: non-tender, normal alignment, supple, no JVD Rhythm: NSR Cardiovascular: normal peripheral pulses, normal rate Extremities: normal range of motion, non-tender Neurologic: corporate training manager II-XII grossly normal Intake and Output 11/24/17 11/25/17 19:00 07:00 Intake Total 620 ml 480 ml Balance 620 ml 480 ml Intake Oral 620 ml 480 ml # Voids 3 2 # Bowel Movements 1 Medardo Oshea M.D. Nov 25, 2017 12:22
--- NOTE | 2017-11-25 15:34 | General Surgery Progress Note ---
General Surgery-Progress Note Subjective Symptoms: improved Additional Comments comfortable and pleasant today Objective Last 24 Hour Vital Signs Date Time Temp Pulse Resp B/P (MAP) Pulse Ox O2 Delivery O2 Flow Rate FiO2 11/25/17 08:00 98.0 87 20 146/82 (103) 96 98.0 11/24/17 21:00 Room Air 11/24/17 16:00 99.3 82 18 115/82 (93) 99 99.3 I&O Intake and Output 11/24/17 11/25/17 19:00 07:00 Intake Total 620 ml 480 ml Balance 620 ml 480 ml Intake Oral 620 ml 480 ml # Voids 3 2 # Bowel Movements 1 Drains: none Cardiovascular: RSR Respiratory: clear Abdomen: soft, flat, non-tender, present bowel sounds Extremities: no cyanosis Plan Problems: (1) Breast mass, left Assessment & Plan: area of mass described as medial sternal mass which she cannot identify mass on exam. likely cartilage being palpated. no discharge. no mass identified on exam. no lymph nodes identified. no nipple abnormality. does have significant chest pain bilaterally on palpation; likely costochondritis -strongly recommend mammogram as outpatient upon discharge. patient instructed on importance. -no acute surgical intervention necessary at this time. (2) Chest pain Assessment & Plan: bilateral palpable chest / rib pain. likely costochondritis. NSAIDS cardiac work up. thank you Everton Gupta Nov 25, 2017 15:34
[2017-11-25 16:00] VITALS: BP 141/81
[2017-11-25 20:00] VITALS: BP 152/71
[2017-11-25] MEDS: Eliquis 2.5mg tablet ORAL SCH (20:56)
[2017-11-26 08:00] VITALS: BP 141/84
--- NOTE | 2017-11-26 08:22 | General Progress Note ---
Assessment/Plan Status: stable Assessment/Plan ASSESSMENT AND PLAN: #. 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 Initially she suffered her first DVT 2 years ago after a ankle fracture thus it was provoked especially after a long period of immobility. It became recurrent. It then occured on her left leg, so she has a hx of left leg dvt as well. Also has a history of PE, not massive in nature and not affected her heart. Her right lower extremity DVT recurred during the interval in which she was not taking her Eliquis. At this time, the patient has been given a dose of 100 mg dose of Lovenox --> given vaginal bleeding 11/24, recommend to restart eliquis 5mg po bid FOR LIFE as recurrent thromboembolic events (hold for one day 11/24) --> do not recommend ivc filter --> do not recommend thrombophilia panel given provoked nature of dvt/pe initially #. Anemia of chronic disease - mild at this time --> workup if hgb drops less than 10 --> CURRENTLY at 11.1 #. Vaginal bleeding - given age>50, r/o endometrial thickening --> have ordered for pelvic us --> 11/24: US abd: Borderline endometrial thickening with endometrial fluid versus cyst. Probable uterine fibroids. --> AIRCRAFT PARTS ASSEMBLER eval needed. --> 11/24: Dr. Davis TELEPHONE ORDER SUPERVISOR saw patient and reports patient is cleared for discharge and can f/u as outpatient #. Breast pain - no evidence of mass. --> appreciate surg recs #. Chest pain. Cardiology has been consulted. Currently, troponins are negative. --> appreciate Dr. Crook and Rito recs --> refused stress test #. Hypertension. Stable. Adjust medications as deemed appropriate. #. Hypokalemia. Continue p.o. potassium supplementation as needed. The time the note was entered does not necessarily correspond to the time the patient was seen. Subjective Date patient seen: Nov 26, 2017 ROS Limited/Unobtainable: Yes Hematologic/Lymphatic: Reports: anemia Allergies: Coded Allergies: HYDROMORPHONE (Unverified Allergy, Severe, 11/03/13) DIPHENHYDRAMINE (Verified Allergy, Intermediate, Itching, 11/22/17) ACETAMINOPHEN (Unverified Allergy, Mild, 11/03/13) AMOXICILLIN (Unverified Allergy, Mild, 11/03/13) CODEINE (Verified Allergy, Mild, 11/22/17) HYDROCODONE (Unverified Allergy, Mild, 11/03/13) PENICILLINS (Unverified Allergy, Mild, 11/03/13) TETRACYCLINES (Unverified Allergy, Mild, 11/03/13) ASPIRIN (Verified Allergy, Unknown, 01/31/15) MORPHINE (Verified Allergy, Unknown, 01/31/15) SULFA (SULFONAMIDE ANTIBIOTICS) (Verified Allergy, Unknown, 01/31/15) Uncoded Allergies: IV CONTRAST (Allergy, Intermediate, Itching, 11/22/17) MSG (Allergy, Intermediate, Itching, 11/22/17) Cipro,Dilaudid, Morphine sulfate (Allergy, Mild, 01/30/15) codein (Allergy, Mild, 11/03/13) gatricin (Allergy, Mild, 11/03/13) gatrinol (Allergy, Mild, 11/03/13) msg (Allergy, Mild, 11/03/13) All Systems: reviewed and negative except above Subjective Pt awake and alert. No acute events. DC planning. Objective Last 24 Hour Vital Signs Date Time Temp Pulse Resp B/P (MAP) Pulse Ox O2 Delivery O2 Flow Rate FiO2 11/26/17 04:00 18 11/26/17 00:00 19 11/25/17 21:00 Room Air 11/25/17 20:00 98.0 92 20 152/71 (98) 99 98.0 11/25/17 16:00 98.1 88 20 141/81 (101) 98.1 11/25/17 12:00 98.8 80 20 135/87 (103) 98 98.8 11/25/17 09:00 Room Air Intake and Output 11/25/17 11/26/17 19:00 07:00 Intake Total 1080 ml Balance 1080 ml Intake Oral 1080 ml # Voids 3 6 # Bowel Movements 1 Height (Feet): 5 Height (Inches): 6.00 Weight (Pounds): 196 General Appearance: no apparent distress, alert EENT: PERRL/EOMI Neck: normal alignment Cardiovascular: normal peripheral pulses Respiratory/Chest: no respiratory distress Abdomen: soft Masood Solis MD Nov 26, 2017 08:22
[2017-11-26] MEDS: Docusate 100mg cap ORAL SCH ×2 (08:26→20:31)
--- NOTE | 2017-11-26 08:28 | Nephrology Progress Note ---
Assessment/Plan Assessment/Plan 1. DVT/PE- Life long Eliquis 2. Chest Pain- per cardiology. Resolved VQ scan low probability 3. Disposition- DC to SNF when bed available 4. HTN- stable on HCT 5. Vaginal Bleeding- on Eliguis - cleared by MOHS SURGEON/GENERAL DERMATOLOGIST Subjective Date patient seen: Nov 26, 2017 Time patient seen: 08:25 ROS Limited/Unobtainable: No Allergies: Coded Allergies: HYDROMORPHONE (Unverified Allergy, Severe, 11/03/13) DIPHENHYDRAMINE (Verified Allergy, Intermediate, Itching, 11/22/17) ACETAMINOPHEN (Unverified Allergy, Mild, 11/03/13) AMOXICILLIN (Unverified Allergy, Mild, 11/03/13) CODEINE (Verified Allergy, Mild, 11/22/17) HYDROCODONE (Unverified Allergy, Mild, 11/03/13) PENICILLINS (Unverified Allergy, Mild, 11/03/13) TETRACYCLINES (Unverified Allergy, Mild, 11/03/13) ASPIRIN (Verified Allergy, Unknown, 01/31/15) MORPHINE (Verified Allergy, Unknown, 01/31/15) SULFA (SULFONAMIDE ANTIBIOTICS) (Verified Allergy, Unknown, 01/31/15) Uncoded Allergies: IV CONTRAST (Allergy, Intermediate, Itching, 11/22/17) MSG (Allergy, Intermediate, Itching, 11/22/17) Cipro,Dilaudid, Morphine sulfate (Allergy, Mild, 01/30/15) codein (Allergy, Mild, 11/03/13) gatricin (Allergy, Mild, 11/03/13) gatrinol (Allergy, Mild, 11/03/13) msg (Allergy, Mild, 11/03/13) Subjective Patient awaiting DC to SNF Objective Last 24 Hour Vital Signs Date Time Temp Pulse Resp B/P (MAP) Pulse Ox O2 Delivery O2 Flow Rate FiO2 11/26/17 04:00 18 11/26/17 00:00 19 11/25/17 21:00 Room Air 11/25/17 20:00 98.0 92 20 152/71 (98) 99 98.0 11/25/17 16:00 98.1 88 20 141/81 (101) 98.1 11/25/17 12:00 98.8 80 20 135/87 (103) 98 98.8 11/25/17 09:00 Room Air Intake and Output 11/25/17 11/26/17 19:00 07:00 Intake Total 1080 ml Balance 1080 ml Intake Oral 1080 ml # Voids 3 6 # Bowel Movements 1 Height (Feet): 5 Height (Inches): 6.00 Weight (Pounds): 196 General Appearance: WD/WN, no apparent distress EENT: PERRL/EOMI Cardiovascular: normal peripheral pulses, normal rate Respiratory/Chest: lungs clear, no respiratory distress Abdomen: non tender, soft Edema: 1+ Leg (R) Allen Bonilla M.D. Nov 26, 2017 08:28
[2017-11-26 09:22] LABS: BASOPHILS % (AUTO) 0.8 % (0.0-2.0); HEMATOCRIT 34.1 % (37.0-47.0); HEMOGLOBIN 10.8 G/DL (12.0-16.0); LYMPHOCYTES % (AUTO) 30.7 % (20.0-45.0); MEAN CORPUSCULAR VOLUME 84 FL (80-99); NEUTROPHILS % (AUTO) 55.5 % (45.0-75.0); PLATELET COUNT 243 K/UL (150-450); RED BLOOD COUNT 4.08 M/UL (4.20-5.40); RED CELL DISTRIBUTION WIDTH 14.3 % (11.6-14.8); WHITE BLOOD COUNT 5.5 K/UL (4.8-10.8)
[2017-11-26 09:35] LABS: ANION GAP 7 mmol/L (5-15); BLOOD UREA NITROGEN 19 mg/dL (7-18); CALCIUM 8.9 MG/DL (8.5-10.1); CARBON DIOXIDE 25 MMOL/L (21-32); CHLORIDE 108 MMOL/L (98-107); CREATININE 0.9 MG/DL (0.55-1.30); POTASSIUM 3.8 MMOL/L (3.5-5.1); SODIUM 139 MMOL/L (136-145)
[2017-11-26] MEDS: Eliquis 2.5mg tablet ORAL SCH ×3 (09:36→20:39)
--- NOTE | 2017-11-26 10:46 | Pulmonology Progress Note ---
Assessment/Plan Assessment/Plan Pulmonary Progress Note Assessment/Plan IMPRESSION: 1. DVT. 2. History of pulmonary embolism. 3. Chest pain. 4. Possible pleurisy. 5. Evidence of nausea. PLAN eliquis monitor as is imaging noted VQ low prob cards noted care reviewed heme noted impression, plan, and exam edited and reviewed in detail care discussed with RN Subjective Allergies: Coded Allergies: HYDROMORPHONE (Unverified Allergy, Severe, 11/03/13) DIPHENHYDRAMINE (Verified Allergy, Intermediate, Itching, 11/22/17) ACETAMINOPHEN (Unverified Allergy, Mild, 11/03/13) AMOXICILLIN (Unverified Allergy, Mild, 11/03/13) CODEINE (Verified Allergy, Mild, 11/22/17) HYDROCODONE (Unverified Allergy, Mild, 11/03/13) PENICILLINS (Unverified Allergy, Mild, 11/03/13) TETRACYCLINES (Unverified Allergy, Mild, 11/03/13) ASPIRIN (Verified Allergy, Unknown, 01/31/15) MORPHINE (Verified Allergy, Unknown, 01/31/15) SULFA (SULFONAMIDE ANTIBIOTICS) (Verified Allergy, Unknown, 01/31/15) Uncoded Allergies: IV CONTRAST (Allergy, Intermediate, Itching, 11/22/17) MSG (Allergy, Intermediate, Itching, 11/22/17) Cipro,Dilaudid, Morphine sulfate (Allergy, Mild, 01/30/15) codein (Allergy, Mild, 11/03/13) gatricin (Allergy, Mild, 11/03/13) gatrinol (Allergy, Mild, 11/03/13) msg (Allergy, Mild, 11/03/13) Subjective no cp or sob vq reviewed Objective Last 24 Hour Vital Signs Date Time Temp Pulse Resp B/P (MAP) Pulse Ox O2 Delivery O2 Flow Rate FiO2 11/24/17 16:00 99.3 82 18 115/82 (93) 99 99.3 11/24/17 12:00 98.7 80 18 127/71 (89) 98 98.7 11/24/17 08:15 Room Air 11/24/17 08:00 98.4 85 18 159/93 (115) 96 98.4 11/23/17 21:00 Room Air Intake and Output 11/23/17 11/24/17 19:00 07:00 Intake Total 550 ml 50 ml Output Total 400 ml Balance 150 ml 50 ml Intake Oral 400 ml IV Total 150 ml 50 ml Output Urine Total 400 ml # Voids 2 Objective GENERAL: A well-developed female, comfortable at present. NAD HEENT: Negative. clear oropharynx NECK: Supple. LUNGS: Fairly clear and symmetric. without rhonchi or wheeze CARDIAC: Normal S1, S2. Regular rate and rhythm without murmurs, rubs, or gallops. ABDOMEN: Soft, nontender, and nondistended. no HSM EXTREMITIES: No cyanosis or clubbing. There is trace edema. NEUROLOGIC: Diffusely nonfocal overall. Laboratory Tests 11/23/17 23:00: Stool Occult Blood Negative 11/24/17 09:32: White Blood Count 5.0, Red Blood Count 4.21, Hemoglobin 11.1L, Hematocrit 35.3L , Mean Corpuscular Volume 84, Mean Corpuscular Hemoglobin 26.3L, Mean Corpuscular Hemoglobin Concent 31.4L, Red Cell Distribution Width 14.7, Platelet Count 257, Mean Platelet Volume 5.0L, Neutrophils (%) (Auto) 59.4, Lymphocytes (%) (Auto) 30.5, Monocytes (%) (Auto) 6.7, Eosinophils (%) (Auto) 2.6, Basophils (%) (Auto) 0.8, Sodium Level 140, Potassium Level 3.6, Chloride Level 106, Carbon Dioxide Level 25, Anion Gap 9, Blood Urea Nitrogen 20H, Creatinine 1.1, Estimat Glomerular Filtration Rate , Glucose Level 141H, Calcium Level 8.9 Current Medications Medications (Trade) Dose Ordered Sig/Antonio Route PRN Reason Start Time Stop Time Status Last Admin Dose Admin Acetaminophen (Tylenol) 650 mg Q4H PRN ORAL Mild Pain (Pain Scale 1-3) 11/23/17 15:00 12/22/17 14:59 11/24/17 01:44 Apixaban (Eliquis) 5 mg Q12HR ORAL 11/29/17 09:00 12/29/17 08:59 Apixaban (Eliquis) 10 mg Q12H ORAL 11/23/17 22:00 11/28/17 22:01 11/23/17 22:03 Dextrose (Dextrose 50%) 25 ml STAT PRN IV Hypoglycemia 11/23/17 15:00 12/23/17 14:59 Dextrose (Dextrose 50%) 50 ml STAT PRN IV Hypoglycemia 11/24/17 15:00 12/22/17 14:59 Diphenhydramine HCl (Benadryl) 25 mg Q6H PRN ORAL Itching/Pruritis 11/23/17 15:00 12/22/17 14:59 Docusate Sodium (Colace) 100 mg EVERY 12 HOURS ORAL 11/23/17 21:00 12/22/17 08:59 11/24/17 09:22 Famotidine (Pepcid) 40 mg DAILY ORAL 11/24/17 09:00 12/22/17 08:59 11/24/17 09:22 Hydrochlorothiazide (Hydrodiuril) 25 mg DAILY ORAL 11/24/17 09:00 12/22/17 08:59 11/24/17 09:22 Ondansetron HCl (Zofran) 4 mg Q6H PRN IVP Nausea & Vomiting 11/23/17 15:00 12/22/17 14:59 Sodium Chloride 1,000 ml @ 50 mls/hr Q20H IVLG 11/23/17 15:00 12/22/17 14:59 11/24/17 01:43 Subjective ROS Limited/Unobtainable: No Constitutional: Reports: no symptoms Allergies: Coded Allergies: HYDROMORPHONE (Unverified Allergy, Severe, 11/03/13) DIPHENHYDRAMINE (Verified Allergy, Intermediate, Itching, 11/22/17) ACETAMINOPHEN (Unverified Allergy, Mild, 11/03/13) AMOXICILLIN (Unverified Allergy, Mild, 11/03/13) CODEINE (Verified Allergy, Mild, 11/22/17) HYDROCODONE (Unverified Allergy, Mild, 11/03/13) PENICILLINS (Unverified Allergy, Mild, 11/03/13) TETRACYCLINES (Unverified Allergy, Mild, 11/03/13) ASPIRIN (Verified Allergy, Unknown, 01/31/15) MORPHINE (Verified Allergy, Unknown, 01/31/15) SULFA (SULFONAMIDE ANTIBIOTICS) (Verified Allergy, Unknown, 01/31/15) Uncoded Allergies: IV CONTRAST (Allergy, Intermediate, Itching, 11/22/17) MSG (Allergy, Intermediate, Itching, 11/22/17) Cipro,Dilaudid, Morphine sulfate (Allergy, Mild, 01/30/15) codein (Allergy, Mild, 11/03/13) gatricin (Allergy, Mild, 11/03/13) gatrinol (Allergy, Mild, 11/03/13) msg (Allergy, Mild, 11/03/13) Objective Last 24 Hour Vital Signs Date Time Temp Pulse Resp B/P (MAP) Pulse Ox O2 Delivery O2 Flow Rate FiO2 11/26/17 09:00 Room Air 11/26/17 08:00 98.2 101 20 141/84 (103) 100 98.2 11/26/17 04:00 18 11/26/17 00:00 19 11/25/17 21:00 Room Air 11/25/17 20:00 98.0 92 20 152/71 (98) 99 98.0 11/25/17 16:00 98.1 88 20 141/81 (101) 98.1 11/25/17 12:00 98.8 80 20 135/87 (103) 98 98.8 Intake and Output 11/25/17 11/26/17 19:00 07:00 Intake Total 1080 ml Balance 1080 ml Intake Oral 1080 ml # Voids 3 6 # Bowel Movements 1 Laboratory Tests 11/26/17 08:40: White Blood Count 5.5, Red Blood Count 4.08L, Hemoglobin 10.8L, Hematocrit 34.1L , Mean Corpuscular Volume 84, Mean Corpuscular Hemoglobin 26.6L, Mean Corpuscular Hemoglobin Concent 31.8L, Red Cell Distribution Width 14.3, Platelet Count 243, Mean Platelet Volume 5.2L, Neutrophils (%) (Auto) 55.5, Lymphocytes (%) (Auto) 30.7, Monocytes (%) (Auto) 10.0, Eosinophils (%) (Auto) 3.0, Basophils (%) (Auto) 0.8, Sodium Level 139, Potassium Level 3.8, Chloride Level 108H, Carbon Dioxide Level 25, Anion Gap 7, Blood Urea Nitrogen 19H, Creatinine 0.9, Estimat Glomerular Filtration Rate , Glucose Level 118H, Calcium Level 8.9 Current Medications Medications (Trade) Dose Ordered Sig/Antonio Route PRN Reason Start Time Stop Time Status Last Admin Dose Admin Acetaminophen (Tylenol) 650 mg Q4H PRN ORAL Mild Pain (Pain Scale 1-3) 11/23/17 15:00 12/22/17 14:59 11/24/17 01:44 Apixaban (Eliquis) 2.5 mg Q12H ORAL 11/25/17 21:00 12/25/17 20:59 11/26/17 09:36 Dextrose (Dextrose 50%) 25 ml STAT PRN IV Hypoglycemia 11/23/17 15:00 12/23/17 14:59 Dextrose (Dextrose 50%) 50 ml STAT PRN IV Hypoglycemia 11/24/17 15:00 12/22/17 14:59 Diphenhydramine HCl (Benadryl) 25 mg Q6H PRN ORAL Itching/Pruritis 11/23/17 15:00 12/22/17 14:59 Docusate Sodium (Colace) 100 mg EVERY 12 HOURS ORAL 11/23/17 21:00 12/22/17 08:59 11/26/17 08:26 Famotidine (Pepcid) 40 mg DAILY ORAL 11/24/17 09:00 12/22/17 08:59 11/26/17 08:27 Hydrochlorothiazide (Hydrodiuril) 25 mg DAILY ORAL 11/24/17 09:00 12/22/17 08:59 11/26/17 08:27 Ondansetron HCl (Zofran) 4 mg Q6H PRN IVP Nausea & Vomiting 11/23/17 15:00 12/22/17 14:59 Sodium Chloride 1,000 ml @ 50 mls/hr Q20H IVLG 11/23/17 15:00 12/22/17 14:59 11/24/17 01:43 Medardo Mason MD Nov 26, 2017 10:46
--- NOTE | 2017-11-26 11:04 | Cardiology Progress Note ---
Assessment/Plan Status: stable Assessment/Plan Assessment/Plan Assessment/Plan 1. Deep venous thrombosis. On Eliquis 5 mg b.i.d. Ventilation/perfusion scan is negative for pulmonary embolism. Offered stress test but she refused 2. Chest pain, atypical. The patient was ruled out for myocardial infarction. EKG was read as acute ischemic changes. Echocardiogram showed Nl EF 65% 3. Hypertension, on hydrochlorothiazide and p.r.n. clonidine. May need additional medication to achieve goals. Discussed low salt diet and increase free water consumption 4. Vaginal bleeding - ultrasound ordered, eliquis held for one day - ok to restart 5. Dispo planning with outpatient follow up pending vaginal ultrasound Subjective Cardiovascular: Reports: no symptoms Respiratory: Reports: no symptoms Gastrointestinal/Abdominal: Reports: no symptoms Genitourinary: Reports: no symptoms Subjective No acute events, no complaints, vitals stable. Awaiting dispo to SNF, re - start eliqus per TRACK TEMPLATE MAKER Objective Last 24 Hour Vital Signs Date Time Temp Pulse Resp B/P (MAP) Pulse Ox O2 Delivery O2 Flow Rate FiO2 11/26/17 09:00 Room Air 11/26/17 08:00 98.2 101 20 141/84 (103) 100 98.2 11/26/17 04:00 18 11/26/17 00:00 19 11/25/17 21:00 Room Air 11/25/17 20:00 98.0 92 20 152/71 (98) 99 98.0 11/25/17 16:00 98.1 88 20 141/81 (101) 98.1 11/25/17 12:00 98.8 80 20 135/87 (103) 98 98.8 General Appearance: no apparent distress, alert EENT: PERRL/EOMI, normal ENT inspection Neck: non-tender, normal alignment Rhythm: NSR Cardiovascular: normal peripheral pulses, normal rate, regular rhythm Respiratory/Chest: chest wall non-tender, normal breath sounds Abdomen: normal bowel sounds, non tender, soft Extremities: normal range of motion, normal inspection Neurologic: polymer materials consultant II-XII grossly normal Intake and Output 11/25/17 11/26/17 19:00 07:00 Intake Total 1080 ml Balance 1080 ml Intake Oral 1080 ml # Voids 3 6 # Bowel Movements 1 Laboratory Tests Test 11/26/17 08:40 White Blood Count 5.5 K/UL (4.8-10.8) Red Blood Count 4.08 M/UL (4.20-5.40) L Hemoglobin 10.8 G/DL (12.0-16.0) L Hematocrit 34.1 % (37.0-47.0) L Mean Corpuscular Volume 84 FL (80-99) Mean Corpuscular Hemoglobin 26.6 PG (27.0-31.0) L Mean Corpuscular Hemoglobin Concent 31.8 G/DL (32.0-36.0) L Red Cell Distribution Width 14.3 % (11.6-14.8) Platelet Count 243 K/UL (150-450) Mean Platelet Volume 5.2 FL (6.5-10.1) L Neutrophils (%) (Auto) 55.5 % (45.0-75.0) Lymphocytes (%) (Auto) 30.7 % (20.0-45.0) Monocytes (%) (Auto) 10.0 % (1.0-10.0) Eosinophils (%) (Auto) 3.0 % (0.0-3.0) Basophils (%) (Auto) 0.8 % (0.0-2.0) Sodium Level 139 MMOL/L (136-145) Potassium Level 3.8 MMOL/L (3.5-5.1) Chloride Level 108 MMOL/L (98-107) H Carbon Dioxide Level 25 MMOL/L (21-32) Anion Gap 7 mmol/L (5-15) Blood Urea Nitrogen 19 mg/dL (7-18) H Creatinine 0.9 MG/DL (0.55-1.30) Estimat Glomerular Filtration Rate mL/min (>60) Glucose Level 118 MG/DL (74-106) H Calcium Level 8.9 MG/DL (8.5-10.1) Medardo Oshea M.D. Nov 26, 2017 11:03
[2017-11-26 12:00] VITALS: BP 113/73
--- NOTE | 2017-11-26 12:31 | General Surgery Progress Note ---
General Surgery-Progress Note Subjective Additional Comments no acute events. doing well. Objective Last 24 Hour Vital Signs Date Time Temp Pulse Resp B/P (MAP) Pulse Ox O2 Delivery O2 Flow Rate FiO2 11/26/17 09:00 Room Air 11/26/17 08:00 98.2 101 20 141/84 (103) 100 98.2 11/26/17 04:00 18 11/26/17 00:00 19 11/25/17 21:00 Room Air 11/25/17 20:00 98.0 92 20 152/71 (98) 99 98.0 11/25/17 16:00 98.1 88 20 141/81 (101) 98.1 I&O Intake and Output 11/25/17 11/26/17 19:00 07:00 Intake Total 1080 ml Balance 1080 ml Intake Oral 1080 ml # Voids 3 6 # Bowel Movements 1 Drains: none Cardiovascular: RSR Respiratory: clear Abdomen: soft, flat, non-tender, present bowel sounds Extremities: no edema, no tenderness, no cyanosis Laboratory Tests Test 11/26/17 08:40 White Blood Count 5.5 K/UL (4.8-10.8) Red Blood Count 4.08 M/UL (4.20-5.40) L Hemoglobin 10.8 G/DL (12.0-16.0) L Hematocrit 34.1 % (37.0-47.0) L Mean Corpuscular Volume 84 FL (80-99) Mean Corpuscular Hemoglobin 26.6 PG (27.0-31.0) L Mean Corpuscular Hemoglobin Concent 31.8 G/DL (32.0-36.0) L Red Cell Distribution Width 14.3 % (11.6-14.8) Platelet Count 243 K/UL (150-450) Mean Platelet Volume 5.2 FL (6.5-10.1) L Neutrophils (%) (Auto) 55.5 % (45.0-75.0) Lymphocytes (%) (Auto) 30.7 % (20.0-45.0) Monocytes (%) (Auto) 10.0 % (1.0-10.0) Eosinophils (%) (Auto) 3.0 % (0.0-3.0) Basophils (%) (Auto) 0.8 % (0.0-2.0) Sodium Level 139 MMOL/L (136-145) Potassium Level 3.8 MMOL/L (3.5-5.1) Chloride Level 108 MMOL/L (98-107) H Carbon Dioxide Level 25 MMOL/L (21-32) Anion Gap 7 mmol/L (5-15) Blood Urea Nitrogen 19 mg/dL (7-18) H Creatinine 0.9 MG/DL (0.55-1.30) Estimat Glomerular Filtration Rate mL/min (>60) Glucose Level 118 MG/DL (74-106) H Calcium Level 8.9 MG/DL (8.5-10.1) Plan Problems: (1) Breast mass, left Assessment & Plan: area of mass described as medial sternal mass which she cannot identify mass on exam. likely cartilage being palpated. no discharge. no mass identified on exam. no lymph nodes identified. no nipple abnormality. does have significant chest pain bilaterally on palpation; likely costochondritis -strongly recommend mammogram as outpatient upon discharge. patient instructed on importance. -no acute surgical intervention necessary at this time. (2) Chest pain Assessment & Plan: bilateral palpable chest / rib pain. likely costochondritis. NSAIDS cardiac work up. thank you Everton Gupta Nov 26, 2017 12:31
--- NOTE | 2017-11-26 14:10 | Cardiology Report ---
APPROVED REPORT EKG Measurement Heart [id number] Normal sinus rhythm Possible Inferior infarct, age undetermined Abnormal ECG
--- NOTE | 2017-11-26 15:35 | Cardiology Report ---
APPROVED REPORT EXAM: Two-dimensional and M-mode echocardiogram with Doppler and color Doppler. INDICATION Chest Pain M-Mode DIMENSIONS IVSd1.5 (0.7-1.1cm)Left Atrium (MM)4.4 (1.6-4.0cm) LVDd5.8 (3.5-5.6cm)Aortic Root3.4 (2.0-3.7cm) PWd1.0 (0.7-1.1cm)Aortic Cusp Exc.1.9 (1.5-2.0cm) IVSs2.2 cm LVDs3.4 (2.5-4.0cm) PWs1.9 cm Normal left ventricular chamber size, systolic function and wall motion .. Left ventricular ejection fraction estimated to be 65-70 %. No evidence of left ventricular hypertrophy . No evidence of pericardial effusion. Mild left atrial enlargements . Right cardiac chamber sizes are within normal limits. Focal aortic valve sclerosis with adequate cusp excursion. Thickened mitral valve leaflets with normal excursion. Mitral annulus and aortic root calcification. Pulmonic valve not well visualized. Normal tricuspid valve structure. IVC dilated at size 2.2size with physiologic collapse. A color flow and spectral Doppler study was performed and revealed: No aortic regurgitation. Mild mitral regurgitation. Mitral diastolic velocities suggest reduced left ventricular relaxation c/w mild LV diastolic dysfunction (Grade I ). Mild to moderate tricuspid regurgitation. Tricuspid systolic velocities suggests peak right ventricular systolic pressure of 50 mmHg,consistent with moderate pulmonary hypertension Pulmonic regurgitation present.
[2017-11-26 15:59] VITALS: BP 135/81
[2017-11-26 20:00] VITALS: BP 126/94
[2017-11-27 08:00] VITALS: BP 131/80
[2017-11-27] MEDS: Docusate 100mg cap ORAL SCH (08:21)
[2017-11-27] MEDS: Eliquis 2.5mg tablet ORAL SCH (08:22)
--- NOTE | 2017-11-27 09:41 | Nephrology Progress Note ---
Assessment/Plan Assessment/Plan 1. DVT/PE- Life long Eliquis 2. Chest Pain- per cardiology. Resolved VQ scan low probability 3. Disposition- DC to SNF when bed available 4. HTN- stable on HCT 5. Vaginal Bleeding- on Eliguis - cleared by WOODEN TANK ERECTOR At this time all appropriate medical care has been delievered. Patient is declining discharge. She does not want to be discharged home or to SNF. Her medical consition is stable. She does not want to leave the hospital At this time defer to CM and hospital administration to address the situation. I have spoken to the patient many many times in a circular conversation and this time patient has been dischgred and she continues to decline to leave. At this time situation will be managed by hospital administration Subjective Allergies: Coded Allergies: HYDROMORPHONE (Unverified Allergy, Severe, 11/03/13) DIPHENHYDRAMINE (Verified Allergy, Intermediate, Itching, 11/22/17) ACETAMINOPHEN (Unverified Allergy, Mild, 11/03/13) AMOXICILLIN (Unverified Allergy, Mild, 11/03/13) CODEINE (Verified Allergy, Mild, 11/22/17) HYDROCODONE (Unverified Allergy, Mild, 11/03/13) PENICILLINS (Unverified Allergy, Mild, 11/03/13) TETRACYCLINES (Unverified Allergy, Mild, 11/03/13) ASPIRIN (Verified Allergy, Unknown, 01/31/15) MORPHINE (Verified Allergy, Unknown, 01/31/15) SULFA (SULFONAMIDE ANTIBIOTICS) (Verified Allergy, Unknown, 01/31/15) Uncoded Allergies: IV CONTRAST (Allergy, Intermediate, Itching, 11/22/17) MSG (Allergy, Intermediate, Itching, 11/22/17) Cipro,Dilaudid, Morphine sulfate (Allergy, Mild, 01/30/15) codein (Allergy, Mild, 11/03/13) gatricin (Allergy, Mild, 11/03/13) gatrinol (Allergy, Mild, 11/03/13) msg (Allergy, Mild, 11/03/13) Subjective Patient awaiting DC to SNF Objective Last 24 Hour Vital Signs Date Time Temp Pulse Resp B/P (MAP) Pulse Ox O2 Delivery O2 Flow Rate FiO2 11/26/17 21:30 97.9 11/26/17 21:00 Room Air 11/26/17 20:31 97.9 11/26/17 20:00 96.6 95 20 126/94 (105) 97 96.6 11/26/17 15:59 97.9 86 18 135/81 (99) 97 97.9 11/26/17 12:00 97.3 91 19 113/73 (86) 98 97.3 Intake and Output 11/26/17 11/27/17 19:00 07:00 Intake Total 480 ml 770 ml Output Total 2000 ml Balance -1520 ml 770 ml Intake Oral 480 ml 770 ml Output Urine Total 2000 ml # Voids 1 5 Height (Feet): 5 Height (Inches): 6.00 Weight (Pounds): 196 Allen Bonilla M.D. Nov 27, 2017 09:41
--- NOTE | 2017-11-27 10:10 | Cardiology Progress Note ---
Assessment/Plan Status: stable Assessment/Plan Assessment/Plan Assessment/Plan 1. Deep venous thrombosis. On Eliquis 5 mg b.i.d. Ventilation/perfusion scan is negative for pulmonary embolism. Offered stress test but she refused 2. Chest pain, atypical. The patient was ruled out for myocardial infarction. EKG was read as acute ischemic changes. Echocardiogram showed Nl EF 65% 3. Hypertension, on hydrochlorothiazide and p.r.n. clonidine. May need additional medication to achieve goals. Discussed low salt diet and increase free water consumption 4. Vaginal bleeding - ultrasound ordered, eliquis held for one day - ok to restart 5. Dispo planning with outpatient follow up pending vaginal ultrasound Subjective Cardiovascular: Reports: no symptoms Respiratory: Reports: no symptoms Gastrointestinal/Abdominal: Reports: no symptoms Genitourinary: Reports: no symptoms Subjective No acute events, no complaints, vitals stable. Patient refused transfer to SNF. Objective Last 24 Hour Vital Signs Date Time Temp Pulse Resp B/P (MAP) Pulse Ox O2 Delivery O2 Flow Rate FiO2 11/27/17 09:00 Room Air 11/27/17 08:00 85 20 131/80 (97) 99 11/26/17 21:30 97.9 11/26/17 21:00 Room Air 11/26/17 20:31 97.9 11/26/17 20:00 96.6 95 20 126/94 (105) 97 96.6 11/26/17 15:59 97.9 86 18 135/81 (99) 97 97.9 11/26/17 12:00 97.3 91 19 113/73 (86) 98 97.3 General Appearance: no apparent distress, alert EENT: PERRL/EOMI, normal ENT inspection Neck: non-tender, normal alignment Rhythm: NSR Cardiovascular: normal peripheral pulses, normal rate Respiratory/Chest: chest wall non-tender, lungs clear Abdomen: normal bowel sounds, non tender Extremities: normal range of motion, non-tender Neurologic: senior administrative assistant II-XII grossly normal Intake and Output 11/26/17 11/27/17 19:00 07:00 Intake Total 480 ml 770 ml Output Total 2000 ml Balance -1520 ml 770 ml Intake Oral 480 ml 770 ml Output Urine Total 2000 ml # Voids 1 5 Medardo Oshea M.D. Nov 27, 2017 10:10
--- NOTE | 2017-11-27 10:23 | General Progress Note ---
Assessment/Plan Status: stable Assessment/Plan ASSESSMENT AND PLAN: #. 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 Initially she suffered her first DVT 2 years ago after a ankle fracture thus it was provoked especially after a long period of immobility. It became recurrent. It then occured on her left leg, so she has a hx of left leg dvt as well. Also has a history of PE, not massive in nature and not affected her heart. Her right lower extremity DVT recurred during the interval in which she was not taking her Eliquis. At this time, the patient has been given a dose of 100 mg dose of Lovenox --> given vaginal bleeding 11/24, recommend to restart eliquis 5mg po bid FOR LIFE as recurrent thromboembolic events (hold for one day 11/24) --> do not recommend ivc filter --> do not recommend thrombophilia panel given provoked nature of dvt/pe initially #. Anemia of chronic disease - mild at this time --> workup if hgb drops less than 10 --> 11/26: CURRENTLY at 10.8 #. Vaginal bleeding - given age>50, r/o endometrial thickening --> have ordered for pelvic us --> 11/24: US abd: Borderline endometrial thickening with endometrial fluid versus cyst. Probable uterine fibroids. --> BREAD OVEN OPERATOR eval needed. --> 11/24: Dr. Davis AIRLINE LOUNGE RECEPTIONIST saw patient and reports patient is cleared for discharge and can f/u as outpatient #. Breast pain - no evidence of mass. --> appreciate surg recs #. Chest pain. Cardiology has been consulted. Currently, troponins are negative. --> appreciate Dr. Crook and Rito recs --> refused stress test #. Hypertension. Stable. Adjust medications as deemed appropriate. #. Hypokalemia. Continue p.o. potassium supplementation as needed. The time the note was entered does not necessarily correspond to the time the patient was seen. Subjective Date patient seen: Nov 27, 2017 ROS Limited/Unobtainable: Yes Hematologic/Lymphatic: Reports: anemia Allergies: Coded Allergies: HYDROMORPHONE (Unverified Allergy, Severe, 11/03/13) DIPHENHYDRAMINE (Verified Allergy, Intermediate, Itching, 11/22/17) ACETAMINOPHEN (Unverified Allergy, Mild, 11/03/13) AMOXICILLIN (Unverified Allergy, Mild, 11/03/13) CODEINE (Verified Allergy, Mild, 11/22/17) HYDROCODONE (Unverified Allergy, Mild, 11/03/13) PENICILLINS (Unverified Allergy, Mild, 11/03/13) TETRACYCLINES (Unverified Allergy, Mild, 11/03/13) ASPIRIN (Verified Allergy, Unknown, 01/31/15) MORPHINE (Verified Allergy, Unknown, 01/31/15) SULFA (SULFONAMIDE ANTIBIOTICS) (Verified Allergy, Unknown, 01/31/15) Uncoded Allergies: IV CONTRAST (Allergy, Intermediate, Itching, 11/22/17) MSG (Allergy, Intermediate, Itching, 11/22/17) Cipro,Dilaudid, Morphine sulfate (Allergy, Mild, 01/30/15) codein (Allergy, Mild, 11/03/13) gatricin (Allergy, Mild, 11/03/13) gatrinol (Allergy, Mild, 11/03/13) msg (Allergy, Mild, 11/03/13) All Systems: reviewed and negative except above Subjective Pt awake and alert. No acute events. Pt refusing DC to SNF. Objective Last 24 Hour Vital Signs Date Time Temp Pulse Resp B/P (MAP) Pulse Ox O2 Delivery O2 Flow Rate FiO2 11/27/17 09:00 Room Air 11/27/17 08:00 85 20 131/80 (97) 99 11/26/17 21:30 97.9 11/26/17 21:00 Room Air 11/26/17 20:31 97.9 11/26/17 20:00 96.6 95 20 126/94 (105) 97 96.6 11/26/17 15:59 97.9 86 18 135/81 (99) 97 97.9 11/26/17 12:00 97.3 91 19 113/73 (86) 98 97.3 Intake and Output 11/26/17 11/27/17 19:00 07:00 Intake Total 480 ml 770 ml Output Total 2000 ml Balance -1520 ml 770 ml Intake Oral 480 ml 770 ml Output Urine Total 2000 ml # Voids 1 5 Height (Feet): 5 Height (Inches): 6.00 Weight (Pounds): 196 General Appearance: no apparent distress EENT: PERRL/EOMI Neck: normal alignment Cardiovascular: normal peripheral pulses Respiratory/Chest: no respiratory distress Abdomen: soft Masood Solis MD Nov 27, 2017 10:23
[2017-11-27 12:00] VITALS: BP 124/85
--- NOTE | 2017-11-27 12:16 | General Surgery Progress Note ---
General Surgery-Progress Note Subjective Symptoms: improved Additional Comments pain improved. no longer palpates mass. doing well. Objective Last 24 Hour Vital Signs Date Time Temp Pulse Resp B/P (MAP) Pulse Ox O2 Delivery O2 Flow Rate FiO2 11/27/17 09:00 Room Air 11/27/17 08:00 85 20 131/80 (97) 99 11/26/17 21:30 97.9 11/26/17 21:00 Room Air 11/26/17 20:31 97.9 11/26/17 20:00 96.6 95 20 126/94 (105) 97 96.6 11/26/17 15:59 97.9 86 18 135/81 (99) 97 97.9 I&O Intake and Output 11/26/17 11/27/17 19:00 07:00 Intake Total 480 ml 770 ml Output Total 2000 ml Balance -1520 ml 770 ml Intake Oral 480 ml 770 ml Output Urine Total 2000 ml # Voids 1 5 Cardiovascular: RSR Respiratory: clear Abdomen: soft, flat, non-tender, present bowel sounds Extremities: no cyanosis Plan Problems: (1) Breast mass, left Assessment & Plan: area of mass described as medial sternal mass which she cannot identify mass on exam. likely cartilage being palpated. no discharge. no mass identified on exam. no lymph nodes identified. no nipple abnormality. does have significant chest pain bilaterally on palpation; likely costochondritis -strongly recommend mammogram as outpatient upon discharge. patient instructed on importance. -no acute surgical intervention necessary at this time. (2) Chest pain Assessment & Plan: bilateral palpable chest / rib pain. likely costochondritis. NSAIDS cardiac work up. thank you Everton Gupta Nov 27, 2017 12:16
[2017-11-29] MEDS ORDERED: Eliquis 2.5mg tablet ORAL SCH ×3 (09:00→10:00)
--- NOTE | 2017-11-29 10:14 | Discharge Summary ---
Discharge Summary Discharge Summary _ DATE OF ADMISSION: 11/21/2017 DATE OF DISCHARGE: 11/27/2017 REASON FOR ADMISSION: 72 years old female with past medical history of hypertension, DVT and pulmonary emboli , presented to emergency room for evaluation due to chest pain along with right lower extremity pain and swelling. Few days ago patient was diagnosed with recurrent DVT in the right lower extremity at the local hospital. She had been previously diagnosed with DVT about 5 months ago and had been on Eliquis since then. During that time the patient also had pulmonary embolism. Patient stated that she ran out of her medication prior to diagnosis of recurrent DVT of right lower extremity, and at that time patient was not on anticoagulation. She reported chest pain, pressure like, non radiating 10/26 . Upon evaluation, vital signs revealed elevated blood pressure 154/88. Pulse oximetry was stable on room air. Troponin was negative. Pro BNP 230. Hemoglobin 10.8 hematocrit 33.2. D-dimer 2.03 . Potassium 3.4 . EKG revealed normal sinus rhythm, no acute ischemic changes. Unable to do CTA since patient allergic to IV contrast. Patient received Lovenox 100 mg in the emergency room. INR 1.1 Patient admitted with diagnoses of right lower extremity DVT, chest pain, hypertension, hypokalemia, CONSULTANTS: patient relations coordinator dr. Oshea pulmonary lead nurse/oncologist Dr. Solis surgery Dr. Gupta STITCHER FEEDER [facility] COURSE: Patient admitted to monitored floor. Cardiology, hematology and pulmonary evaluations were requested. There was concern for possible pulmonary emboli. VQ revealed low probability of PE . Patient was started on anticoagulation. Potassium supplement provided. Banking Pin Adjuster seen and evaluated patient. Echocardiogram revealed preserved ejection fraction of 65-70% and right ventricular systolic pressure of 50 , consistent with moderate pulmonary hypertension. Banking Pin Adjuster recommended stress test , but patient declined. Patient was ruled out for myocardial infarction with serial negative troponin and no acute ischemic changes on ECG. According to patient relations coordinator chest pain was atypical. Blood pressure was managed with hydrochlorothiazide and clonidine on as needed basis. Calcium channel steph was further added to antihypertensive regimen to keep blood pressure under control. Banking Pin Adjuster discussed with patient importance of low-salt diet and increase in free water intake. Groundskeeper Porter closely followed. Groundskeeper Porter recommended to restart Eliquis 10 mg twice a day for 7 days and then change to 5 mg twice a day for life as recurrent thromboembolic event. Groundskeeper Porter did not recommend IVC filter. Patient also had a history of PE but not massive in nature and not affecting her heart. Groundskeeper Porter also did not recommend thrombophilia panel , given provoked nature of DVT/ PE initially. Hemoglobin and hematocrit closely monitored with goal to keep hemoglobin above 7 . Stool for occult blood was negative. Hemoglobin and hematocrit remained stable. Prior to discharge hemoglobin 10.8 hematocrit 34.1. GI prophylaxis provided. Certified Medical Technician closely followed. Supplemental oxygen provided as needed to keep pulse oximetry above 92%. Pulmonary toilet was on standby as needed. Pulse oximetry was stable on room air. Patient developed vaginal bleeding. Transvaginal ultrasound was ordered given her age and postmenopausal bleeding to rule out endometrial thickening. Eliquis was hold for 1 day on 11/24 . STITCHER FEEDER specialist seen and evaluated the patient. Transvaginal ultrasound revealed borderline endometrial thickening with endometrial fluid versus cyst. Probable uterine fibroids. Ovaries were not identified. No free pelvic fluid. Patient showed no evidence of active bleeding while evaluated by STITCHER FEEDER specialist. Borderline endometrial thickening will require outpatient follow-up for endometrial sampling . No signs of active bleeding. Hemoglobin and hematocrit remained stable. No signs of hemodynamic instability. Given recurrent DVT and history of PE , STITCHER FEEDER specialist recommended to restart anticoagulation if deemed appropriate by the primary team. No indication for emergent surgical intervention at this time was recommended. ENGRAVER recommended outpatient follow-up for endometrial biopsy versus hysteroscopy/ D&C. Eliquis was restarted after STITCHER FEEDER clearance with 5 mg twice a day for life due to recurrent thromboembolic events. Surgeon seen and evaluated patient for left medial breast mass noted by patient. Patient could not identify mass on the exam. Per patient relations coordinator, likely cartilage being palpated. No discharge. No mass identified on exam. No lymph nodes identified. No nipple abnormality. Patient did have significant chest pain bilaterally on palpation, likely costochondritis as per surgeon Surgeon strongly recommended mammogram as outpatient upon discharge ( last done over 10 years ago and patient believed, no abnormalities were found at that time). Patient instructed on importance to have mammogram. No acute surgical intervention was necessary at this time. Pain was addressed with nonsteroid anti-inflammatory medications as recommended by surgeon. Patient was [facility] management. FINAL DIAGNOSES: Bilateral DVT with recurrence of right lower extremity DVT History of PE. Atypical chest pain Likely costochondritis Hypertension Anemia of chronic disease Postmenopausal bleeding Hypokalemia DISCHARGE MEDICATIONS: See Medication Reconciliation list. DISCHARGE INSTRUCTIONS: Patient was discharged to the correction facility. Follow up with medical doctor at the facility. Follow-up as outpatient with ENGRAVER as advised. I have been assigned to dictate discharge summary for this account. I was not involved in the patient's management. Lynn Coley NP Nov 29, 2017 10:14
== END 2017-11-27 14:35 | DRG 197 ==
LOC: EDBD 21:06 → EMR 21:42 → MERGE 22:49 → 2E 22:49 → EDBEDREQ 11-22 00:13 → 4E 11-23 14:02
DX: I82.491 Acute embolism and thrombosis of other specified deep vein of right lower extremity (principal); D63.8 Anemia in other chronic diseases classified elsewhere; M94.0 Chondrocostal junction syndrome [Tietze]; Z86.711 Personal history of pulmonary embolism; Z79.01 Long term (current) use of anticoagulants; I10 Essential (primary) hypertension; N95.0 Postmenopausal bleeding; Z88.6 Allergy status to analgesic agent; Z88.0 Allergy status to penicillin; Z88.2 Allergy status to sulfonamides; Z88.8 Allergy status to other drugs, medicaments and biological substances; Z91.041 Radiographic dye allergy status; Z91.02 Food additives allergy status; Z86.718 Personal history of other venous thrombosis and embolism; E87.6 Hypokalemia
CPT/HCPCS: 36415; 71045; 76830; 76856; 78579; 78580; 80048; 80053; 82270; 82378; 82550; 82553; 82728; 82746; 83090; 83540; 83550; 83880; 83921; 84443; 84484; 85025; 85379; 85384; 85610; 85730; 93005; 93306; A9503; J2405; J8499

== ENCOUNTER 2019-07-01 23:29 | Emergency (ER) | payer MEDICARE, MEDICAID ==
[~2019-07-01] VITALS: Ht 167.6 cm; Wt 81.6 kg
[~2019-07-01 23:29] MED LIST changes: +HYDROCHLOROTHIA25 MG ORAL
--- NOTE | 2019-07-01 23:29 | NUR ---
ED Nurse Note: Pt brought in RA [id number], picked up from [facility], c/o bilateral leg pain 10/10 and swelling x3 days. VSS, PT is A&Ox4
[2019-07-01 23:30] VITALS: BP 136/74
[2019-07-01] MEDS ORDERED: HYDROcodone/Acetamin 5/325 tab ORAL ONE (23:45)
--- NOTE | 2019-07-02 01:52 | Diagnostic Imaging Report ---
EXAM: US Duplex Bilateral Lower Extremities Veins CLINICAL HISTORY: MELINALL TECHNIQUE: Real-time duplex ultrasound scan of the bilateral lower extremity veins integrating B-mode two-dimensional vascular structure, Doppler spectral analysis, color flow Doppler imaging and compression. COMPARISON: No relevant prior studies available. FINDINGS: No evidence of DVT bilateral lower extremities.
--- NOTE | 2019-07-02 02:00 | NUR ---
ED Nurse Note: Pt resting in bed with eyes closed, non-labored breathing, pt states she has lessened pain, will continue to monitor
[2019-07-02 03:30] VITALS: BP 128/70
[2019-07-02] MEDS ORDERED: ELIQUIS5 MG PO (03:47)
--- NOTE | 2019-07-02 03:48 | Emergency Room Report ---
History of Present Illness General Chief Complaint: Edema Source: Patient, EMS Present Illness HPI 73-year-old female presents with bilateral leg pain and swelling. Brought in by EMS from Street. States she said the pain for several days now. Notes history of PE and DVT. Is supposed to be taking Eliquis but does not have her medication at this time. Has not taken it for the last few months. Pain is a 9 out of 10, dull, nonradiating. Denies any chest pain or shortness of breath. Denies fevers or chills. Denies cough. No other aggravating relieving factors. Denies any other associated symptoms COVID-19 risk:Travel to affect: No Has patient experienced reeder: No Allergies: Coded Allergies: HYDROMORPHONE (Unverified Allergy, Severe, 11/03/13) DIPHENHYDRAMINE (Verified Allergy, Intermediate, Itching, 11/22/17) ACETAMINOPHEN (Unverified Allergy, Mild, 11/03/13) AMOXICILLIN (Unverified Allergy, Mild, 11/03/13) CODEINE (Verified Allergy, Mild, 11/22/17) HYDROCODONE (Unverified Allergy, Mild, 11/03/13) PENICILLINS (Unverified Allergy, Mild, 11/03/13) TETRACYCLINES (Unverified Allergy, Mild, 11/03/13) ASPIRIN (Verified Allergy, Unknown, 01/31/15) MORPHINE (Verified Allergy, Unknown, 01/31/15) SULFA (SULFONAMIDE ANTIBIOTICS) (Verified Allergy, Unknown, 01/31/15) Uncoded Allergies: IV CONTRAST (Allergy, Intermediate, Itching, 11/22/17) MSG (Allergy, Intermediate, Itching, 11/22/17) Cipro,Dilaudid, Morphine sulfate (Allergy, Mild, 01/30/15) codein (Allergy, Mild, 11/03/13) gatricin (Allergy, Mild, 11/03/13) gatrinol (Allergy, Mild, 11/03/13) msg (Allergy, Mild, 11/03/13) ASA (Allergy, Unknown, 07/01/19) Patient History Past Medical History: CVA/TIA, other - DVT/PE Past Surgical History: none Pertinent Family History: none Social History: Denies: smoking, alcohol use, drug use Now: No Immunizations: UTD Reviewed Nursing Documentation: PMH: Agreed; PSxH: Agreed Nursing Documentation-PMH Hx Cardiac Problems: Yes Hx Hypertension: Yes - blood lcots Hx Cancer: No Hx Gastrointestinal Problems: No Hx Neurological Problems: Yes Hx Cerebrovascular Accident: Yes - TIA Hx Head Trauma: Yes Review of Systems All Other Systems: negative except mentioned in HPI Physical Exam Vital Signs Date Time Temp Pulse Resp B/P (MAP) Pulse Ox O2 Delivery O2 Flow Rate FiO2 07/01/19 23:23 97.5 80 20 136/74 (94) 97 Sp02 EP Interpretation: reviewed, normal General Appearance: no apparent distress, alert, GCS 15, non-toxic Head: normocephalic, atraumatic Eyes: bilateral eye normal inspection, bilateral eye PERRL ENT: hearing grossly normal, normal pharynx, no angioedema, normal voice Neck: full range of motion, supple/symm/no masses Respiratory: chest non-tender, lungs clear, normal breath sounds, speaking full sentences Cardiovascular #1: regular rate, rhythm, no edema Cardiovascular #2: 2+ carotid (R), 2+ carotid (L), 2+ radial (R), 2+ radial (L) , 2+ dorsalis pedis (R), 2+ dorsalis pedis (L) Gastrointestinal: normal bowel sounds, non tender, soft, non-distended, no guarding, no rebound Rectal: deferred Genitourinary: normal inspection, no CVA tenderness Musculoskeletal: back normal, normal range of motion, gait/station normal, non- tender, swelling - bilateral lower extremities Neurologic: alert, motor strength/tone normal, oriented x3, sensory intact, responsive, speech normal Psychiatric: judgement/insight normal, memory normal, mood/affect normal, no suicidal/homicidal ideation Reflexes: 3+ bicep (R), 3+ bicep (L), 3+ tricep (R), 3+ tricep (L), 3+ knee (R) , 3+ knee (L) Skin: no rash Lymphatic: no adenopathy Medical Decision Making Homeless Attestation I, The treating physician Dr. Phan, have assessed and agrees that patient is medically stable for discharge to an outpatient disposition. Diagnostic Impression: Primary Impression: Peripheral edema ER Course Hospital Course 73 yo F presents with bilateral leg pain/swelling. h/o DVT and PE Differential diagnoses include: DVT, cellulitis, contusion, abscess Clinical course Patient placed on stretcher after initial history and physical I ordered pain medication and DVT ultrasound. Doppler ultrasound shows no evidence of DVT I discussed findings with patient. I will provide refill of her Eliquis. Safe for discharge with close outpatient follow-up. Homeless checklist completed. I will provide PMD referrals I. I feel this is a highly complex case requiring extensive working including EKG/Rhythm strip, Xray/CT/US, Blood/urine lab work, repeat exams while in ED, and administration of strong opiates/narcotics for pain control, admission to hospital or close patient follow up. Diagnosis - peripheral edema Stable and discharged to home with Rx Eliquis. Followup with PMD. Return to ED if symptoms recur or worsen CT/MRI/US Diagnostic Results CT/MRI/US Diagnostic Results : Imaging Test Ordered: Venous Duplex Impression EXAM: US Duplex Bilateral Lower Extremities Veins CLINICAL HISTORY: SWELL TECHNIQUE: Real-time duplex ultrasound scan of the bilateral lower extremity veins integrating B-mode two-dimensional vascular structure, Doppler spectral analysis , color flow Doppler imaging and compression. COMPARISON: No relevant prior studies available. FINDINGS: No evidence of DVT bilateral lower extremities Last Vital Signs Date Time Temp Pulse Resp B/P (MAP) Pulse Ox O2 Delivery O2 Flow Rate FiO2 07/01/19 23:23 97.5 80 20 136/74 (94) 97 Status: improved Disposition: HOME, SELF-CARE Condition: Stable Scripts Apixaban (ELIQUIS) 5 Mg Tablet 5 MG PO DAILY, #30 TAB Prov: Rafal Phan MD 07/02/19 Referrals: NOT CHOSEN IPA/,REFERRING (PCP) [facility] Rafal Phan MD Jul 02, 2019 03:48
--- NOTE | 2019-07-02 04:00 | NUR ---
ED Nurse Note: Pt side laying with eyes closed, no signs of distress, offerred pt water, will continue to monitor
--- NOTE | 2019-07-02 06:19 | NUR ---
ED Nurse Note: ERMD at bedside, pt states " i can't walk, I need to go to the hospital" awaiting orders
[2019-07-02] MEDS ORDERED: Furosemide 40mg tab ORAL ONE (06:30)
[2019-07-02] MEDS ORDERED: Morphine Sulfate 2mg/ml Inj(IV/IM USE ONLY) IM ONE (06:30)
--- NOTE | 2019-07-02 06:36 | NUR ---
ED Nurse Note: morphine 2 mg IM not given, pt has allergy, states she will take tylenol PO instead, ERMD notified. medication wasted per protocol
--- NOTE | 2019-07-02 07:10 | NUR ---
ED Nurse Note: Received hand-off from JAYCEE Barreto. Received pt on bed, awake and alert on stable condition, VSS, on RA. Pt denies any pain nor discomfort as of now.
[2019-07-02 07:18] VITALS: BP 128/70
[2019-07-02 07:40] VITALS: BP 124/68
--- NOTE | 2019-07-02 07:40 | NUR ---
ER DISCHARGE NOTE: Pt is cleared to be discharged per ERMD, pt is aox3, on RA, with stable vital signs. pt was given dc and prescription instructions, pt was able to verbalize understanding, pt id band removed. pt is able to ambulate assisted with cane. pt took all belongings.
== END 2019-07-02 07:40 | disposition home or self-care (01) ==
LOC: EDBD 23:29 → EMR 23:59
DX: R60.0 Localized edema (principal); Z86.718 Personal history of other venous thrombosis and embolism; Z88.6 Allergy status to analgesic agent; Z88.2 Allergy status to sulfonamides; Z88.0 Allergy status to penicillin; Z91.041 Radiographic dye allergy status
CPT/HCPCS: 93970; 96372; 99284